=== PATIENT | female | born 1990 | race Caucasian/White ===

== ENCOUNTER 2016-09-28 23:34 | Emergency (ER) | payer MEDICAID ==
[2016-09-29 00:39] LABS: APPEARANCE,URINE CLEAR; BILIRUBIN,URINE NEGATIVE (NEGATIVE); GLUCOSE, URINE NEGATIVE (NEGATIVE); KETONES,URINE NEGATIVE (NEGATIVE); LEUKOCYTE ESTERASE,URINE SMALL (NEGATIVE); NITRITE,URINE NEGATIVE (NEGATIVE); PROTEIN,URINE NEGATIVE (NEGATIVE); URINE SPECIFIC GRAVITY 1.027; UROBILINOGEN,URINE NEGATIVE mg/dL (<2.0)
[2016-09-29 03:06] LABS: ABSOLUTE BASOPHILS # (AUTO) 0.1 10^3/uL (0.0-0.2); ABSOLUTE EOSINOPHILS # (AUTO) 0.2 10^3/uL (0.0-0.6); ABSOLUTE LYMPHOCYTES (AUTO) 2.8 10^3/uL (0.5-4.7); ABSOLUTE MONOCYTES (AUTO) 0.8 10^3/uL (0.1-1.4); ABSOLUTE NEUT (AUTO) 6.7 10^3/uL (1.7-8.2); BASOPHILS % (AUTO) 0.7 % (0-2); EOSINOPHILS % (AUTO) 1.9 % (0-6); HEMATOCRIT 37.7 % (36.0-47.0); HEMOGLOBIN 12.8 g/dL (12.0-15.5); HGB HCT DIFFERENCE 0.7; LYMPHOCYTES % (AUTO) 26.4 % (13-45); MEAN CORPUSCULAR HEMOGLOBIN 30.6 pg (27.0-33.4); MEAN CORPUSCULAR VOLUME 90 fl (80-97); MONOCYTES % (AUTO) 7.7 % (3-13); RED BLOOD COUNT 4.18 10^6/uL (3.72-5.28); RED CELL DISTRIBUTION WIDTH 12.4 % (11.5-14.0); SEGMENTED NEUTROPHILS % (AUTO) 63.3 % (42-78); WHITE BLOOD COUNT 10.6 10^3/uL (4.0-10.5)
[2016-09-29 03:21] LABS: ALANINE AMINOTRANSFERASE 21 U/L (9-52); ALBUMIN 3.3 g/dL (3.5-5.0); ALKALINE PHOSPHATASE 58 U/L (38-126); ANION GAP 9 (5-19); ASPARTATE AMINO TRANSFERASE 18 U/L (14-36); BILIRUBIN,TOTAL 0.3 mg/dL (0.2-1.3); BLOOD UREA NITROGEN 10 mg/dL (7-20); CALCIUM 9.2 mg/dL (8.4-10.2); CARBON DIOXIDE 28 mmol/L (22-30); CHLORIDE 103 mmol/L (98-107); CREATININE RESULT 0.57 mg/dL (0.52-1.25); GLUCOSE 81 mg/dL (75-110); POTASSIUM 4.3 mmol/L (3.6-5.0); SODIUM 139.6 mmol/L (137-145)
[2016-09-29] MEDS ORDERED: NORMAL SALINE 1000 ML 1,000 ML IV PRN (04:21)
--- NOTE | 2016-09-29 04:29 | ER Document Report ---
ED GI/ - General Time seen by provider: 05:15 Mode of Arrival: Ambulatory Information source: Patient TRAVEL OUTSIDE OF THE [place] IN LAST 30 DAYS: No - HPI Patient complains to provider of: Abdominal pain, , Vomiting. No: Vaginal bleeding Onset: Yesterday Timing/Duration: Waxing and waning Quality of pain: Cramping Context: Menstrual period history: Associated symptoms: Nausea, Vomiting <MALORIE BARTON - Last Filed: 09/29/16 05:45> - General TRAVEL OUTSIDE OF THE [place] IN LAST 30 DAYS: No <YANCY HIDALGO - Last Filed: 09/29/16 05:58> - General Chief Complaint: Abdominal Cramping Stated Complaint: LOWER BACK PAIN, CRAMPS Notes: Patient is a 26 year old female presenting to the emergency department complaining of low back pain, and abdominal cramping. Patient states her cramping and pain is waxing and waning. Patient had a recent UTI and is currently taking antibiotics. Patient states that her urine still has an odor. Patient states that she is also nauseated and has had some vomiting. Patient denies any vaginal bleeding. Patient states she has not been drinking enough fluids so she is trying drink more fluids. (MALORIE BARTON) - Related Data Allergies/Adverse Reactions: bee stings Allergy (Uncoded 09/29/16 00:03) Past Medical History - General Information source: Patient - Social History Smoking Status: Never Smoker Chew tobacco use (# tins/day): No Frequency of alcohol use: None Drug Abuse: None Family History: None Patient has suicidal ideation: No Patient has homicidal ideation: No Neurological Medical History: Reports: Hx Migraine Past Surgical History: Reports: Hx Orthopedic Surgery, Hx Tonsillectomy - Immunizations Hx Diphtheria, Pertussis, Tetanus Vaccination: Yes <MALORIE BARTON - Last Filed: 09/29/16 05:45> - Social History Smoking Status: Never Smoker Chew tobacco use (# tins/day): No Frequency of alcohol use: None Drug Abuse: None Family History: Reviewed & Not Pertinent Patient has suicidal ideation: No Patient has homicidal ideation: No Neurological Medical History: Reports: Hx Migraine Renal/ Medical History: Denies: Hx Peritoneal Dialysis Past Surgical History: Reports: Hx Orthopedic Surgery - ingrown toenails, Hx Tonsillectomy - Immunizations Hx Diphtheria, Pertussis, Tetanus Vaccination: Yes <YANCY HIDALGO - Last Filed: 09/29/16 05:58> Review of Systems - Review of Systems Constitutional: No symptoms reported EENT: No symptoms reported Cardiovascular: No symptoms reported Respiratory: No symptoms reported Gastrointestinal: See HPI, Abdominal pain, Nausea, Vomiting Genitourinary: No symptoms reported Female Genitourinary: See HPI, . denies: Vaginal bleeding Musculoskeletal: See HPI, Back pain Skin: No symptoms reported Hematologic/Lymphatic: No symptoms reported Neurological/Psychological: No symptoms reported -: Yes All other systems reviewed and negative <MALORIE BARTON - Last Filed: 09/29/16 05:45> Physical Exam - Vital signs Interpretation: Normal - General General appearance: Appears well, Alert In distress: Mild - HEENT Head: Normocephalic, Atraumatic Eyes: Normal Pupils: PERRL Mucous membranes: Normal - Respiratory Respiratory status: No respiratory distress Chest status: Nontender Breath sounds: Normal Chest palpation: Normal - Cardiovascular Rhythm: Regular Heart sounds: Normal auscultation - Abdominal Inspection: Normal Distension: No distension Bowel sounds: Normal Tenderness: Nontender Organomegaly: No organomegaly - Back Back: Normal, Nontender - Extremities General upper extremity: Normal inspection, Normal ROM, Normal strength General lower extremity: Normal inspection, Normal ROM, Normal strength - Neurological Neuro grossly intact: Yes Cognition: Normal Orientation: AAOx4 [place] Coma Scale Eye Opening: Spontaneous [place] Coma Scale Verbal: Oriented [place] Coma Scale Motor: Obeys Commands [place] Coma Scale Total: 15 Speech: Normal - Psychological Associated symptoms: Normal affect, Normal mood - Skin Skin Temperature: Warm Skin Moisture: Dry <MALORIE BARTON - Last Filed: 09/29/16 05:45> Course - Laboratory Result Diagrams: 09/29/16 02:54 09/29/16 02:54 <MALORIE BARTON - Last Filed: 09/29/16 05:45> - Laboratory Result Diagrams: 09/29/16 02:54 09/29/16 02:54 <YANCY HIDALGO - Last Filed: 09/29/16 05:58> - Re-evaluation Re-evalutation: 09/29/16 patient is . Patient with some cramping is now resolved. Patient is being treated for urinary tract infection Keflex. She is encouraged to continue taking that regimen. Urine culture will be sent today. Patient feels better after fluids. Would like work note. Stable for discharge home. Follow- up with [facility] as needed. Return if any worsening or concerning symptoms. (YANCY HIDALGO) - Vital Signs Vital signs: Temp Pulse Resp BP Pulse Ox 97.5 F 91 16 110/60 100 09/29/16 05:02 09/29/16 05:02 09/29/16 00:03 09/29/16 05:02 09/29/16 05:02 (MALORIE BARTON) (YANCY HIDALGO) - Laboratory Laboratory results interpreted by me: 09/29/16 09/29/16 09/29/16 00:16 02:54 02:54 WBC 10.6 H Total Protein 6.0 L Albumin 3.3 L Beta HCG, Quant 337117.00 H Ur Leukocyte Esterase SMALL H Urine Ascorbic Acid 40 H (MALORIE BARTON) (YANCY HIDALGO) Discharge <MALORIE BARTON - Last Filed: 09/29/16 05:45> <YANCY HIDALGO - Last Filed: 09/29/16 05:58> - Discharge Clinical Impression: Pelvic cramping in antepartum period Condition: Stable Disposition: HOME, SELF-CARE Instructions: Pelvic Pain in ([facility]) Forms: Return to Work Referrals: JULIAN GONSALVES MD [Primary Care Provider] - Follow up as needed Scribe Attestation: 09/29/16 05:58 I personally performed the services described in the documentation, reviewed and edited the documentation which was dictated to the scribe in my presence, and it accurately records my words and actions. (YANCY HIDALGO) Scribe Documentation <MALORIE BARTON - Last Filed: 09/29/16 05:45> <YANCY HIDALGO - Last Filed: 09/29/16 05:58> - Scribe Written by Scribe:: Dr. Hidalgo (MALORIE BARTON)
[2016-09-29 05:05] VITALS: BP 110/60
== END 2016-09-29 05:05 | disposition home or self-care (01) ==
LOC: ER 23:34
DX: O26.90 Pregnancy related conditions, unspecified, unspecified trimester (principal); R10.2 Pelvic and perineal pain; O21.9 Vomiting of pregnancy, unspecified
CPT/HCPCS: 36415; 80053; 81001; 83690; 84702; 85025; 87086; 87088; 99283

== ENCOUNTER 2016-10-01 13:40 | Emergency (ER) | payer MEDICAID ==
--- NOTE | 2016-10-01 13:44 | ER Document Report ---
ED Medical Screen (RME) - General Stated Complaint: ABDOMINAL PAIN Notes: 14 weeks left abdominal pain no vaginal bleeding or cramping TRAVEL OUTSIDE OF THE [place] IN LAST 30 DAYS: No - Related Data Allergies/Adverse Reactions: bee stings Allergy (Uncoded 09/29/16 00:03) Past Medical History Neurological Medical History: Reports: Hx Migraine Renal/ Medical History: Denies: Hx Peritoneal Dialysis Past Surgical History: Reports: Hx Orthopedic Surgery - ingrown toenails, Hx Tonsillectomy - Immunizations Hx Diphtheria, Pertussis, Tetanus Vaccination: Yes
[2016-10-01] MEDS ORDERED: NORMAL SALINE 1000 ML 1,000 ML IV PRN (13:45)
--- NOTE | 2016-10-01 14:22 | ER Document Report ---
ED GI/ - General Chief Complaint: Abdominal Pain Stated Complaint: ABDOMINAL PAIN Time seen by provider: 14:17 Mode of Arrival: Ambulatory Information source: Patient TRAVEL OUTSIDE OF THE [place] IN LAST 30 DAYS: No - HPI Patient complains to provider of: Abdominal pain - pt is approx 14 weeks with c/o L -sided abdominal pain for the past day. Denies vaginal bleeding., Has appt. with health dept 10/10. No other pre- care - Related Data Allergies/Adverse Reactions: bee stings Allergy (Uncoded 10/01/16 13:45) Past Medical History - General Information source: Patient - Social History Smoking Status: Never Smoker Cigarette use (# per day): No Chew tobacco use (# tins/day): No Smoking Education Provided: No Frequency of alcohol use: None Drug Abuse: None Family History: Reviewed & Not Pertinent Patient has suicidal ideation: No Patient has homicidal ideation: No Neurological Medical History: Reports: Hx Migraine Renal/ Medical History: Denies: Hx Peritoneal Dialysis Past Surgical History: Reports: Hx Orthopedic Surgery - ingrown toenails, Hx Tonsillectomy - Immunizations Hx Diphtheria, Pertussis, Tetanus Vaccination: Yes Review of Systems - Review of Systems Constitutional: No symptoms reported EENT: No symptoms reported Cardiovascular: No symptoms reported Respiratory: No symptoms reported Gastrointestinal: Abdominal pain Genitourinary: No symptoms reported Female Genitourinary: No symptoms reported -: Yes All other systems reviewed and negative Physical Exam - Vital signs Vitals: Temp Pulse Resp BP Pulse Ox 98.0 F 92 18 107/74 98 10/01/16 13:45 10/01/16 13:45 10/01/16 13:45 10/01/16 13:45 10/01/16 13:45 - General In distress: None - Respiratory Respiratory status: No respiratory distress Breath sounds: Normal - Cardiovascular Rhythm: Regular Heart sounds: Normal auscultation - Abdominal Inspection: Normal Distension: No distension Bowel sounds: Normal Tenderness: Nontender Organomegaly: No organomegaly - Genitourinary Speculum exam: Other - exam deferred Course - Re-evaluation Re-evalutation: 10/01/16 17:01 pt felt much better [place] from [place] now pain free -- expressed desire to go home - Vital Signs Vital signs: Temp Pulse Resp BP Pulse Ox 98.0 F 92 18 107/74 98 10/01/16 13:45 10/01/16 13:45 10/01/16 13:45 10/01/16 13:45 10/01/16 13:45 - Laboratory Result Diagrams: 10/01/16 13:50 10/01/16 13:50 Laboratory results interpreted by me: 10/01/16 10/01/16 13:50 14:59 Beta HCG, Quant [id number] H Ur Leukocyte Esterase LARGE H - Diagnostic Test Radiology reviewed: Reports reviewed - [facility]- 14 wks Discharge - Discharge Clinical Impression: UTI (urinary tract infection) Qualifiers: Urinary tract infection type: acute cystitis Hematuria presence: without hematuria Qualified Code(s): N30.00 - Acute cystitis without hematuria Condition: Stable Disposition: HOME, SELF-CARE Instructions: Abdominal Pain ([facility]), Amoxicillin ([facility]) Additional Instructions: rest, increase fluids, take meds as prescribed, return if worse Prescriptions: Amoxicillin Trihydrate [Amoxil 500 mg Capsule] 500 mg PO TID #30 capsule Referrals: JULIAN GONSALVES MD [ACTIVE STAFF] - Follow up as needed
[2016-10-01 14:32] LABS: ABSOLUTE EOSINOPHILS # (AUTO) 0.2 10^3/uL (0.0-0.6); ABSOLUTE LYMPHOCYTES (AUTO) 2.1 10^3/uL (0.5-4.7); ABSOLUTE MONOCYTES (AUTO) 0.5 10^3/uL (0.1-1.4); ABSOLUTE NEUT (AUTO) 7.3 10^3/uL (1.7-8.2); BASOPHILS % (AUTO) 0.3 % (0-2); EOSINOPHILS % (AUTO) 1.6 % (0-6); HEMOGLOBIN 13.4 g/dL (12.0-15.5); HGB HCT DIFFERENCE -0.8; LYMPHOCYTES % (AUTO) 20.6 % (13-45); MEAN CORPUSCULAR HGB CONC 32.6 g/dL (32.0-36.0); MEAN CORPUSCULAR VOLUME 92 fl (80-97); MONOCYTES % (AUTO) 5.1 % (3-13); RED BLOOD COUNT 4.46 10^6/uL (3.72-5.28); RED CELL DISTRIBUTION WIDTH 12.8 % (11.5-14.0); SEGMENTED NEUTROPHILS % (AUTO) 72.4 % (42-78); WHITE BLOOD COUNT 10.1 10^3/uL (4.0-10.5)
[2016-10-01 14:46] LABS: ALANINE AMINOTRANSFERASE 25 U/L (9-52); ALBUMIN 3.5 g/dL (3.5-5.0); ALKALINE PHOSPHATASE 63 U/L (38-126); ANION GAP 9 (5-19); ASPARTATE AMINO TRANSFERASE 18 U/L (14-36); BILIRUBIN,TOTAL 0.2 mg/dL (0.2-1.3); BLOOD UREA NITROGEN 7 mg/dL (7-20); CALCIUM 9.3 mg/dL (8.4-10.2); CARBON DIOXIDE 28 mmol/L (22-30); CHLORIDE 102 mmol/L (98-107); CREATININE RESULT 0.52 mg/dL (0.52-1.25); GLUCOSE 86 mg/dL (75-110); POTASSIUM 4.2 mmol/L (3.6-5.0); TOTAL PROTEIN 6.3 g/dL (6.3-8.2)
[2016-10-01 15:39] LABS: APPEARANCE,URINE CLOUDY; BILIRUBIN,URINE NEGATIVE (NEGATIVE); GLUCOSE, URINE NEGATIVE (NEGATIVE); KETONES,URINE NEGATIVE (NEGATIVE); LEUKOCYTE ESTERASE,URINE LARGE (NEGATIVE); NITRITE,URINE NEGATIVE (NEGATIVE); PROTEIN,URINE NEGATIVE (NEGATIVE); URINE SPECIFIC GRAVITY 1.013; UROBILINOGEN,URINE NEGATIVE mg/dL (<2.0)
[2016-10-01 17:55] VITALS: BP 108/59
== END 2016-10-01 17:56 | disposition home or self-care (01) ==
LOC: ER 13:40
DX: O23.12 Infections of bladder in pregnancy, second trimester (principal); N30.00 Acute cystitis without hematuria; R10.9 Unspecified abdominal pain; Z3A.14 14 weeks gestation of pregnancy; Z91.030 Bee allergy status
CPT/HCPCS: 99284; 96360; 86900; 86901; 36415; 86850; 84702; 85025; 80053; 81001; 76805; 93976; J7030

== ENCOUNTER 2016-10-04 11:35 | Emergency (ER) | payer MEDICAID ==
--- NOTE | 2016-10-04 11:57 | ER Document Report ---
ED Medical Screen (RME) - General Stated Complaint: ABDOMINAL PAIN Mode of Arrival: Ambulatory Information source: Patient Notes: Patient states she is 14 weeks and has had lower pelvic cramping for some time now. Patient states that she is currently being treated for UTI. Patient complains of continued lower pelvic cramping. Patient had an ultrasound at an outpatient facility that told her there was something abnormal on the ultrasound patient would like this further evaluated here. Patient states she wants to be seen by [facility] but the health department has not referred her yet due to her insurance I have greeted and performed a rapid initial assessment of this patient. A comprehensive ED assessment and evaluation of the patient, analysis of test results and completion of the medical decision making process will be conducted by additional ED providers. TRAVEL OUTSIDE OF THE [place] IN LAST 30 DAYS: No - Related Data Allergies/Adverse Reactions: bee stings Allergy (Uncoded 10/04/16 11:53) Past Medical History Neurological Medical History: Reports: Hx Migraine Renal/ Medical History: Denies: Hx Peritoneal Dialysis Past Surgical History: Reports: Hx Orthopedic Surgery - ingrown toenails, Hx Tonsillectomy - Immunizations Hx Diphtheria, Pertussis, Tetanus Vaccination: Yes Physical Exam - Vital signs Vitals: Temp Pulse Resp BP Pulse Ox 98.3 F 101 H 18 106/71 97 10/04/16 11:51 10/04/16 11:51 10/04/16 11:51 10/04/16 11:51 10/04/16 11:51 - Abdominal Tenderness: Tender - Lower pelvic Course - Vital Signs Vital signs: Temp Pulse Resp BP Pulse Ox 98.3 F 101 H 18 106/71 97 10/04/16 11:51 10/04/16 11:51 10/04/16 11:51 10/04/16 11:51 10/04/16 11:51
[2016-10-04 12:40] LABS: ABSOLUTE EOSINOPHILS # (AUTO) 0.1 10^3/uL (0.0-0.6); ABSOLUTE LYMPHOCYTES (AUTO) 1.8 10^3/uL (0.5-4.7); ABSOLUTE MONOCYTES (AUTO) 0.5 10^3/uL (0.1-1.4); ABSOLUTE NEUT (AUTO) 8.6 10^3/uL (1.7-8.2); BASOPHILS % (AUTO) 0.3 % (0-2); EOSINOPHILS % (AUTO) 0.8 % (0-6); HEMATOCRIT 42.8 % (36.0-47.0); HEMOGLOBIN 13.8 g/dL (12.0-15.5); HGB HCT DIFFERENCE -1.4; LYMPHOCYTES % (AUTO) 16.6 % (13-45); MEAN CORPUSCULAR HEMOGLOBIN 29.6 pg (27.0-33.4); MEAN CORPUSCULAR HGB CONC 32.2 g/dL (32.0-36.0); MEAN CORPUSCULAR VOLUME 92 fl (80-97); MONOCYTES % (AUTO) 4.5 % (3-13); RED BLOOD COUNT 4.65 10^6/uL (3.72-5.28); RED CELL DISTRIBUTION WIDTH 12.4 % (11.5-14.0); SEGMENTED NEUTROPHILS % (AUTO) 77.8 % (42-78)
[2016-10-04 12:47] LABS: APPEARANCE,URINE CLEAR; BILIRUBIN,URINE NEGATIVE (NEGATIVE); GLUCOSE, URINE NEGATIVE (NEGATIVE); KETONES,URINE NEGATIVE (NEGATIVE); LEUKOCYTE ESTERASE,URINE TRACE (NEGATIVE); NITRITE,URINE NEGATIVE (NEGATIVE); PROTEIN,URINE NEGATIVE (NEGATIVE); URINE SPECIFIC GRAVITY 1.009; UROBILINOGEN,URINE NEGATIVE mg/dL (<2.0)
[2016-10-04 13:05] LABS: ALANINE AMINOTRANSFERASE 26 U/L (9-52); ALBUMIN 4.3 g/dL (3.5-5.0); ALKALINE PHOSPHATASE 73 U/L (38-126); ANION GAP 11 (5-19); ASPARTATE AMINO TRANSFERASE 19 U/L (14-36); BILIRUBIN,TOTAL 0.8 mg/dL (0.2-1.3); BLOOD UREA NITROGEN 8 mg/dL (7-20); CALCIUM 9.8 mg/dL (8.4-10.2); CARBON DIOXIDE 25 mmol/L (22-30); CHLORIDE 103 mmol/L (98-107); CREATININE RESULT 0.54 mg/dL (0.52-1.25); GLUCOSE 76 mg/dL (75-110); POTASSIUM 4.4 mmol/L (3.6-5.0); SODIUM 138.5 mmol/L (137-145); TOTAL PROTEIN 7.1 g/dL (6.3-8.2)
--- NOTE | 2016-10-04 14:55 | ER Document Report ---
ED General - General Chief Complaint: Abdominal Cramping Stated Complaint: ABDOMINAL PAIN Mode of Arrival: Ambulatory Information source: Patient Notes: 26 yr old female who is 14 weeks pregnat presents with concerns of cramping. pt notes she had an ultrasound prior which ntoed nuchal lucency. pt attempted to get with health dept and wha and uwas unable ot do so denies any vaginal bleeding TRAVEL OUTSIDE OF THE [place] IN LAST 30 DAYS: No - HPI Onset: Other Onset/Duration: Persistent Quality of pain: Cramping Severity: Mild Pain Level: 1 Associated symptoms: None Exacerbated by: Denies Relieved by: Denies Similar symptoms previously: Yes Recently seen / treated by doctor: Yes - Related Data Allergies/Adverse Reactions: bee stings Allergy (Uncoded 10/04/16 11:53) Past Medical History - General Information source: Patient - Social History Smoking Status: Never Smoker Cigarette use (# per day): No Chew tobacco use (# tins/day): No Smoking Education Provided: No Frequency of alcohol use: None Drug Abuse: None Family History: Reviewed & Not Pertinent Patient has suicidal ideation: No Patient has homicidal ideation: No Neurological Medical History: Reports: Hx Migraine Renal/ Medical History: Denies: Hx Peritoneal Dialysis Past Surgical History: Reports: Hx Orthopedic Surgery - ingrown toenails, Hx Tonsillectomy - Immunizations Hx Diphtheria, Pertussis, Tetanus Vaccination: Yes Review of Systems - Review of Systems Notes: REVIEW OF SYSTEMS: CONSTITUTIONAL : Denies fever, chills, or sweats. Denies recent illness. EENT: Denies eye, ear, throat, or mouth pain or symptoms. Denies nasal or sinus congestion or discharge. Denies throat, tongue, or mouth swelling or difficulty swallowing. CARDIOVASCULAR: Denies chest pain. Denies palpitations or racing or irregular heart beat. Denies ankle edema. RESPIRATORY: Denies cough, cold, or chest congestion. Denies shortness of breath, difficulty breathing, or wheezing. GASTROINTESTINAL: Denies abdominal pain or distention. Denies nausea, vomiting , or diarrhea. Denies blood in vomitus, stools, or per rectum. Denies black, tarry stools. Denies constipation. GENITOURINARY: Denies difficulty urinating, painful urination, burning, frequency, blood in urine, or discharge. FEMALE GENITOURINARY: Admits to pelvic cramping MUSCULOSKELETAL: Denies back or neck pain or stiffness. Denies joint pain or swelling. SKIN: Denies rash, lesions or sores. HEMATOLOGIC : Denies easy bruising or bleeding. LYMPHATIC: Denies swollen, enlarged glands. NEUROLOGICAL: Denies confusion or altered mental status. Denies passing out or loss of consciousness. Denies dizziness or lightheadedness. Denies headache. Denies weakness or paralysis or loss of use of either side. Denies problems with gait or speech. Denies sensory loss, numbness, or tingling. Denies seizures. PSYCHIATRIC: Denies anxiety or stress. Denies depression, suicidal ideation, or homicidal ideation. ALL OTHER SYSTEMS REVIEWED AND NEGATIVE. Dictation was performed using [employer] voice recognition software PHYSICAL EXAMINATION: GENERAL: Well-appearing, well-nourished and in no acute distress. HEAD: Atraumatic, normocephalic. EYES: Pupils equal round extraocular movements intact, conjunctiva are normal. ENT: Nares patent NECK: Normal range of motion LUNGS: No respiratory distress Musculoskeletal: Normal range of motion NEUROLOGICAL: Normal speech, normal gait. PSYCH: Normal mood, normal affect. SKIN: Warm, Dry, normal turgor, no rashes or lesions noted. Physical Exam - Vital signs Vitals: Temp Pulse Resp BP Pulse Ox 98.3 F 101 H 18 106/71 97 10/04/16 11:51 10/04/16 11:51 10/04/16 11:51 10/04/16 11:51 10/04/16 11:51 Course - Re-evaluation Re-evalutation: 10/04/16 14:[address] Foy regarding US findings, she will set patient up with an appointment with the health department. She believes it is normal at this time but requires a professional ultrasound performed 10/04/16 15:28 Patient did receive a call from health department she will have an appointment and I believe she is stable for discharge After performing a Medical Screening Examination, I estimate there is LOW risk for ACUTE APPENDICITIS, BOWEL OBSTRUCTION, ACUTE CHOLECYSTITIS, PERFORATED DIVERTICULITIS, INCARCERATED HERNIA, PANCREATITIS, PELVIC INFLAMMATORY DISEASE, PERFORATED ULCER, ECTOPIC , or TUBO-OVARIAN ABSCESS, thus I consider the discharge disposition reasonable. Also, there is no evidence or peritonitis , sepsis, or toxicity. The patient and I have discussed the diagnosis and risks , and we agree with discharging home with close follow-up with the understanding that symptoms and presentations can change. We also discussed returning to the Emergency Department immediately if new or worsening symptoms occur. We have discussed the symptoms which are most concerning (e.g., bloody stool, fever, changing or worsening pain, vomiting) that necessitate immediate return. - Vital Signs Vital signs: Temp Pulse Resp BP Pulse Ox 98.3 F 101 H 18 106/71 97 10/04/16 11:51 10/04/16 11:51 10/04/16 11:51 10/04/16 11:51 10/04/16 11:51 - Laboratory Result Diagrams: 10/04/16 12:15 10/04/16 12:15 Laboratory results interpreted by me: 10/04/16 10/04/16 10/04/16 12:15 12:15 12:15 WBC 11.0 H Absolute Neutrophils 8.6 H Beta HCG, Quant [id number] H Ur Leukocyte Esterase TRACE H - Diagnostic Test Radiology reviewed: Image reviewed, Reports reviewed Discharge - Discharge Clinical Impression: Pelvic pain during Condition: Stable Disposition: HOME, SELF-CARE Additional Instructions: Please follow-up with the care plan provided to you by the health department or return immediately if there are any other concerns
[2016-10-04 15:46] VITALS: BP 106/88
== END 2016-10-04 15:45 | disposition home or self-care (01) ==
LOC: ER 11:35
DX: O26.92 Pregnancy related conditions, unspecified, second trimester (principal); R10.2 Pelvic and perineal pain; Z3A.14 14 weeks gestation of pregnancy
CPT/HCPCS: 36415; 76805; 80053; 81001; 84702; 85025; 87086; 87088; 99284

== ENCOUNTER 2016-10-07 01:42 | Emergency (ER) | payer MEDICAID ==
--- NOTE | 2016-10-07 02:22 | ER Document Report ---
ED GI/ - General Time seen by provider: 20:15 Mode of Arrival: Ambulatory Information source: Patient TRAVEL OUTSIDE OF THE [place] IN LAST 30 DAYS: No - HPI Patient complains to provider of: Abdominal pain, , Vaginal discharge Onset: This evening Quality of pain: Cramping Context: Vaginal bleeding (Compared to normal period): None Menstrual period history: <MALORIE BARTON - Last Filed: 10/07/16 03:21> - General TRAVEL OUTSIDE OF THE [place] IN LAST 30 DAYS: No <YANCY HIDALGO - Last Filed: 10/07/16 05:46> - General Chief Complaint: Vaginal Discharge Stated Complaint: VAGINAL DISCHARGE Notes: Patient is a 26-year-old female, who is 15 weeks , presenting to the emergency department with complaints of vaginal discharge. Patient states that she had some mucus appearing vaginal discharge and has some concerned that he was her "mucus plug." Patient states that she has some abdominal cramping as well. Patient has come to the emergency department multiple times every few days to get evaluated because she has some concerns for . Patient has a high-risk for a trisomy or down syndrome patient. Patient states that she had a ultrasound done today at her [facility]. Patient states she is very nervous that she is going to have a miscarriage. Patient also currently has a UTI and is taking antibiotics to treat it. Patient states she is drinking lots of fluids daily. Patient denies any vaginal bleeding. (MALORIE BARTON) - Related Data Allergies/Adverse Reactions: bee stings Allergy (Uncoded 10/04/16 11:53) Past Medical History - General Information source: Patient - Social History Smoking Status: Never Smoker Cigarette use (# per day): No Chew tobacco use (# tins/day): No Frequency of alcohol use: None Drug Abuse: None Family History: None Neurological Medical History: Reports: Hx Migraine Past Surgical History: Reports: Hx Orthopedic Surgery, Hx Tonsillectomy - Immunizations Hx Diphtheria, Pertussis, Tetanus Vaccination: Yes <MALORIE BARTON - Last Filed: 10/07/16 03:21> - Social History Smoking Status: Never Smoker Frequency of alcohol use: None Drug Abuse: None Family History: Reviewed & Not Pertinent Neurological Medical History: Reports: Hx Migraine Renal/ Medical History: Denies: Hx Peritoneal Dialysis Past Surgical History: Reports: Hx Orthopedic Surgery - ingrown toenails, Hx Tonsillectomy - Immunizations Hx Diphtheria, Pertussis, Tetanus Vaccination: Yes <YANCY HIDALGO - Last Filed: 10/07/16 05:46> Review of Systems - Review of Systems Constitutional: No symptoms reported EENT: No symptoms reported Cardiovascular: No symptoms reported Respiratory: No symptoms reported Gastrointestinal: See HPI, Abdominal pain Genitourinary: No symptoms reported Female Genitourinary: See HPI, , Vaginal discharge. denies: Vaginal bleeding Musculoskeletal: No symptoms reported Skin: No symptoms reported Hematologic/Lymphatic: No symptoms reported Neurological/Psychological: No symptoms reported -: Yes All other systems reviewed and negative <MALORIE BARTON - Last Filed: 10/07/16 03:21> Physical Exam - Vital signs Interpretation: Normal - General General appearance: Appears well, Alert In distress: None - HEENT Head: Normocephalic, Atraumatic Eyes: Normal Pupils: PERRL Mucous membranes: Normal - Respiratory Respiratory status: No respiratory distress Chest status: Nontender Breath sounds: Normal Chest palpation: Normal - Cardiovascular Rhythm: Regular Heart sounds: Normal auscultation Murmur: No - Abdominal Inspection: Gravid female Distension: No distension Bowel sounds: Normal Tenderness: Nontender Organomegaly: No organomegaly - Back Back: Normal, Nontender - Extremities General upper extremity: Normal inspection, Normal ROM, Normal strength General lower extremity: Normal inspection, Normal ROM, Normal strength - Neurological Neuro grossly intact: Yes Cognition: Normal Orientation: AAOx4 [place] Coma Scale Eye Opening: Spontaneous [place] Coma Scale Verbal: Oriented [place] Coma Scale Motor: Obeys Commands Peggy Coma Scale Total: 15 Speech: Normal Sensory: Normal - Psychological Associated symptoms: Normal affect, Normal mood - Skin Skin Temperature: Warm Skin Moisture: Dry <MALORIE BARTON - Last Filed: 10/07/16 03:21> Course <MALORIE BARTON - Last Filed: 10/07/16 03:21> <YANCY HIDALGO - Last Filed: 10/07/16 05:46> - Re-evaluation Re-evalutation: 10/07/16 Patient is a 26-year-old female who comes in because of some vaginal discharge. Patient does not feel that she to be tested for STDs. Patient's taking antibiotics for UTI based on a culture currently. Bedside ultrasound within normal limits. Patient is 15 weeks. Patient is to follow-up with her [facility]. Stable for discharge. (YANCY HIDALGO) - Vital Signs Vital signs: Temp Pulse Resp BP Pulse Ox 98.3 F 71 18 105/62 97 10/07/16 02:30 10/07/16 02:30 10/07/16 02:30 10/07/16 02:30 10/07/16 02:30 (MALORIE BARTON) (YANCY HIDALGO) Procedures - Ultrasound/Bedside Ultrasound/Bedside Time completed: 02:18 <MALORIE BARTON - Last Filed: 10/07/16 03:21> - Ultrasound/Bedside Ultrasound/Bedside Ultrasound: Normal, Other - Good movement. heartbeat at approximately 160 bpm. No free fluid <YANCY HIDALGO - Last Filed: 10/07/16 05:46> Discharge <MALORIE BARTON - Last Filed: 10/07/16 03:21> <YANCY HIDALGO - Last Filed: 10/07/16 05:46> - Discharge Clinical Impression: Pelvic pain during Condition: Stable Disposition: HOME, SELF-CARE Instructions: Pelvic Pain in ([facility]) Additional Instructions: Please make sure you're drinking plenty of fluids and taking your antibiotics as directed. Please follow-up with your OB in the morning. Scribe Attestation: 10/07/16 05:45 I personally performed the services described in the documentation, reviewed and edited the documentation which was dictated to the scribe in my presence, and it accurately records my words and actions. (YANCY HIDALGO) Scribe Documentation - Scribe Written by Scribjose luis:: Malorie Barton 03:03 10/07/16 acting as scribe for :: Mary <MALORIE BARTON - Last Filed: 10/07/16 03:21>
[2016-10-07 02:35] VITALS: BP 105/62
[2016-10-07 02:51] LABS: APPEARANCE,URINE CLEAR; BILIRUBIN,URINE NEGATIVE (NEGATIVE); GLUCOSE, URINE NEGATIVE (NEGATIVE); KETONES,URINE NEGATIVE (NEGATIVE); LEUKOCYTE ESTERASE,URINE NEGATIVE (NEGATIVE); NITRITE,URINE NEGATIVE (NEGATIVE); PROTEIN,URINE NEGATIVE (NEGATIVE); URINE SPECIFIC GRAVITY 1.017; UROBILINOGEN,URINE NEGATIVE mg/dL (<2.0)
== END 2016-10-07 02:36 | disposition home or self-care (01) ==
LOC: ER 01:42
DX: O26.892 Other specified pregnancy related conditions, second trimester (principal); R10.2 Pelvic and perineal pain; N89.8 Other specified noninflammatory disorders of vagina; O23.42 Unspecified infection of urinary tract in pregnancy, second trimester; O09.892 Supervision of other high risk pregnancies, second trimester; Z3A.15 15 weeks gestation of pregnancy; Z91.030 Bee allergy status
CPT/HCPCS: 81001; 99283

== ENCOUNTER 2016-10-14 11:32 | Emergency (ER) | payer MEDICAID ==
--- NOTE | 2016-10-14 11:44 | ER Document Report ---
ED Medical Screen (RME) - General Stated Complaint: ABDOMINAL PAIN Time seen by provider: 11:42 Mode of Arrival: Ambulatory Information source: Patient Notes: 26-year-old female presents to ED for abdominal pain at around 15 weeks with a high risk . Denies nausea or vomiting. Patient is concerned with the pain due she has been told she has a Down syndrome child. Spoke with Dr. Mabry he agreed a transabdominal ultrasound. I have greeted and performed a rapid initial assessment of this patient. A comprehensive ED assessment and evaluation of the patient, analysis of test results and completion of medical decision making process will be conducted by an additional ED providers. TRAVEL OUTSIDE OF THE [place] IN LAST 30 DAYS: No - Related Data Allergies/Adverse Reactions: bee stings Allergy (Uncoded 10/04/16 11:53) Past Medical History Neurological Medical History: Reports: Hx Migraine Renal/ Medical History: Denies: Hx Peritoneal Dialysis Past Surgical History: Reports: Hx Orthopedic Surgery - ingrown toenails, Hx Tonsillectomy - Immunizations Hx Diphtheria, Pertussis, Tetanus Vaccination: Yes
[2016-10-14 11:47] VITALS: BP 116/67
--- NOTE | 2016-10-14 14:07 | ER Document Report ---
HPI - HPI Patient complains to provider of: abdominal discomfort Onset: Yesterday Onset/Duration: Gradual, Intermittent Pain Level: 3 Context: 26 yo female with 33% chance of downs and another anomolie c/o intermittent mild abdominal pain. No vaginal bleeding. Under stress because father's family wants her to have an . So she thinks the argument caused pain. No dysuria. No fever. No vaginal discharge. Has appt. with obgyn high risk in [place]. She only wants to know if there is a heartbeat. Associated Symptoms: None Exacerbated by: Denies Relieved by: Denies Similar symptoms previously: No Recently seen / treated by doctor: No - ROS ROS below otherwise negative: Yes Systems Reviewed and Negative: Yes All other systems reviewed and negative - REPRODUCTIVE Reproductive: REPORTS: : - DERM Skin Color: Normal Past Medical History - General Information source: Patient - Social History Smoking Status: Never Smoker Chew tobacco use (# tins/day): No Frequency of alcohol use: None Drug Abuse: None Lives with: Family Family History: Reviewed & Not Pertinent Patient has suicidal ideation: No Patient has homicidal ideation: No Neurological Medical History: Reports: Hx Migraine Renal/ Medical History: Denies: Hx Peritoneal Dialysis Surgical Hx: Negative Past Surgical History: Reports: Hx Orthopedic Surgery - ingrown toenails, Hx Tonsillectomy - Immunizations Hx Diphtheria, Pertussis, Tetanus Vaccination: Yes Vertical Provider Document - CONSTITUTIONAL Agree With Documented VS: Yes Exam Limitations: No Limitations General Appearance: No Apparent Distress - INFECTION CONTROL TRAVEL OUTSIDE OF THE [place] IN LAST 30 DAYS: No - HEENT HEENT: Normocephalic - NECK Neck: Supple - RESPIRATORY Respiratory: Breath Sounds Normal, No Respiratory Distress O2 Sat by Pulse Oximetry: 99 - CARDIOVASCULAR Cardiovascular: Regular Rate, Regular Rhythm - GI/ABDOMEN Gastrointestinal: Abdomen Soft Notes: gravid uterus - BACK Back: Normal Inspection. negative: CVA Tenderness-Right, CVA Tenderness-Left - MUSCULOSKELETAL/EXTREMETIES Musculoskeletal/Extremeties: WENDY BELTRÁN - NEURO Level of Consciousness: Awake, Alert - DERM Integumentary: Warm, Dry Course - Re-evaluation Re-evalutation: 10/14/16 14:48 Patient is to leave to worm picker her son she wanted to make sure that there was a heartbeat on the ultrasound. The full report of the ultrasound has not been read by the radiologist but I told the patient that she can call me to get the results in about an hour. 10/14/16 14:48 - Vital Signs Vital signs: Temp Pulse Resp BP Pulse Ox 97.8 F 96 14 116/67 99 10/14/16 11:43 10/14/16 11:43 10/14/16 11:43 10/14/16 11:43 10/14/16 11:43 Discharge - Discharge Clinical Impression: viable 15 week 6 day Condition: Good Disposition: HOME, SELF-CARE Instructions: ([facility]) Additional Instructions: Call me at [phone] for the ultrasound results Return to the emergency room for any abdominal pain or bleeding. Follow-up with Dr. Mitchell as planned Forms: Return to Work Referrals: SONNY MITCHELL MD [Primary Care Provider] - 10/17/16
== END 2016-10-14 14:57 | disposition home or self-care (01) ==
LOC: ER 11:32
DX: O26.92 Pregnancy related conditions, unspecified, second trimester (principal); R10.9 Unspecified abdominal pain; Z3A.15 15 weeks gestation of pregnancy
CPT/HCPCS: 76805; 99284

== ENCOUNTER 2016-10-18 10:05 | Emergency (ER) | payer MEDICAID ==
--- NOTE | 2016-10-18 10:19 | ER Document Report ---
ED Medical Screen (RME) - General Stated Complaint: URINATION HAS ODOR Time seen by provider: 10:17 Mode of Arrival: Ambulatory Information source: Patient TRAVEL OUTSIDE OF THE [place] IN LAST 30 DAYS: No - HPI Patient complains to provider of: URINE HAS ODOR Onset: Other - INTERMITTENT SINCE JULY Onset/Duration: Persistent Quality of pain: No pain Severity: None Pain Level: Denies Associated Symptoms: Other - VAGINAL DISCHARGE AND IRRITATION Exacerbated by: Denies Relieved by: Denies Similar symptoms previously: Yes Recently seen / treated by doctor: Yes - FOR UTI Notes: 10/18/16 10:19 PT IS 16 WEEKS - Related Data Smoking: Non-smoker Frequency of alcohol use: None Drug Abuse: None Allergies/Adverse Reactions: No Known Drug Allergies Allergy (Verified 10/18/16 10:15) bee stings Allergy (Uncoded 10/18/16 10:15) Past Medical History Neurological Medical History: Reports: Hx Migraine Renal/ Medical History: Denies: Hx Peritoneal Dialysis Past Surgical History: Reports: Hx Orthopedic Surgery - ingrown toenails, Hx Tonsillectomy - Immunizations Hx Diphtheria, Pertussis, Tetanus Vaccination: Yes Physical Exam - Vital signs Vitals: Temp Pulse Resp BP Pulse Ox 97.9 F 72 14 115/68 97 10/18/16 10:10 10/18/16 10:10 10/18/16 10:10 10/18/16 10:10 10/18/16 10:10 Course - Vital Signs Vital signs: Temp Pulse Resp BP Pulse Ox 97.9 F 72 14 115/68 97 10/18/16 10:10 10/18/16 10:10 10/18/16 10:10 10/18/16 10:10 10/18/16 10:10
[2016-10-18 10:42] LABS: APPEARANCE,URINE SLIGHTLY-CLOUDY; BILIRUBIN,URINE NEGATIVE (NEGATIVE); GLUCOSE, URINE NEGATIVE (NEGATIVE); KETONES,URINE NEGATIVE (NEGATIVE); LEUKOCYTE ESTERASE,URINE TRACE (NEGATIVE); NITRITE,URINE NEGATIVE (NEGATIVE); PROTEIN,URINE NEGATIVE (NEGATIVE); URINE SPECIFIC GRAVITY 1.015; UROBILINOGEN,URINE NEGATIVE mg/dL (<2.0)
--- NOTE | 2016-10-18 11:01 | ER Document Report ---
ED GI/ - General Mode of Arrival: Ambulatory Information source: Patient TRAVEL OUTSIDE OF THE [place] IN LAST 30 DAYS: No - HPI Patient complains to provider of: Other - UTI Onset: Last week Menstrual period history: Associated symptoms: Other - See above - General Chief Complaint: Vaginal Discharge Stated Complaint: URINATION HAS ODOR Notes: 26-year-old female (16 weeks) (presents to the ED complaining of foul- smelling odor with urination and yellow vaginal discharge for the past one week. Patient states that she was diagnosed with UTI 1 week ago and has recently finished a regimen of amoxicillin. Patient states that she was seen in the ED for bacterial vaginosis and was prescribed Flagyl on top of having a UTI at the time. Patient states that since being diagnosed with bacterial vaginosis she has had a "UTI" 4 times and has been prescribed Keflex and Bactrim as well. Patient denies any burning with urination. Patient states that she has not discussed these UTIs with her OB, Dr. Arbeu. Patient states that she saw her OB last week and was informed that her child has syndrome. Patient's next point with her OB is in 4 weeks. (TITO NOLAND) - Related Data Allergies/Adverse Reactions: No Known Drug Allergies Allergy (Verified 10/18/16 10:15) bee stings Allergy (Uncoded 10/18/16 10:15) Past Medical History - General Information source: Patient - Social History Smoking Status: Never Smoker Chew tobacco use (# tins/day): No Frequency of alcohol use: None Drug Abuse: None Family History: Reviewed & Not Pertinent Patient has suicidal ideation: No Neurological Medical History: Reports: Hx Migraine Renal/ Medical History: Denies: Hx Peritoneal Dialysis Past Surgical History: Reports: Hx Orthopedic Surgery - ingrown toenails, Hx Tonsillectomy - Immunizations Hx Diphtheria, Pertussis, Tetanus Vaccination: Yes Review of Systems - Review of Systems Constitutional: See HPI, Recent illness - bacterial vaginosis and UTI EENT: No symptoms reported Cardiovascular: No symptoms reported Respiratory: No symptoms reported Gastrointestinal: No symptoms reported Genitourinary: No symptoms reported. denies: Burning Female Genitourinary: See HPI, - 16 weeks, Vaginal discharge, Vaginal odor Musculoskeletal: No symptoms reported Skin: No symptoms reported Hematologic/Lymphatic: No symptoms reported Neurological/Psychological: No symptoms reported -: Yes All other systems reviewed and negative Physical Exam - Vital signs Interpretation: Normal - General General appearance: Alert In distress: None - HEENT Head: Normocephalic, Atraumatic Eyes: Normal Extraocular movements intact: Yes Pupils: PERRL - Respiratory Respiratory status: No respiratory distress Breath sounds: Normal - Cardiovascular Rhythm: Regular Heart sounds: Normal auscultation - Abdominal Inspection: Normal Distension: No distension Bowel sounds: Normal Tenderness: Nontender - Genitourinary External exam: Normal Bimanuel exam: Normal - Extremities General upper extremity: Normal inspection, Normal ROM General lower extremity: Normal inspection, Normal ROM - Neurological Neuro grossly intact: Yes Cognition: Normal Orientation: AAOx4 [place] Coma Scale Eye Opening: Spontaneous Peggy Coma Scale Verbal: Oriented Peggy Coma Scale Motor: Obeys Commands [place] Coma Scale Total: 15 Speech: Normal - Psychological Associated symptoms: Normal affect, Normal mood - Skin Skin Temperature: Warm Skin Moisture: Dry Skin Color: Normal - Vital signs Vitals: Temp Pulse Resp BP Pulse Ox 97.9 F 72 14 115/68 97 10/18/16 10:10 10/18/16 10:10 10/18/16 10:10 10/18/16 10:10 10/18/16 10:10 (TITO NOLAND) (DENZEL FLORES) Course - Re-evaluation Re-evalutation: 10/18/16 13:43 I personally performed the services described in the documentation, reviewed and edited the documentation which was dictated to my scribe in my presence, and it accurately records my words and actions. Patient presents emergency Department with a chief complaint of UTI. Patient has had multiple visits to the ER since she found out she was . She sees an [facility] specialist here in [facility] and most recently saw them last week. She is very overwhelmed she's been told that the child likely has Down syndrome. There is a whole bunch of additional testing that they want to do. That she's extremely overwhelmed with at this time. She is also here by herself and doesn't seem to have any support. She says she's been on numerous antibiotics but that nothing seems to be getting better when I ask her what it is it's not getting better she says the smell that she smells in her vagina. On straight catheter urinalysis she has a couple white cells but nothing I would be convinced that she has an acute urinary tract infection especially with multiple antibiotics. We'll send a culture of that did a pelvic examination wet prep is negative for Trichomonas. GC and chlamydia are pending that she didn't complain of any tenderness on examination nor dysuria vaginal discharge side do not suspect acute PID. At this point I'm going to recommend given the number of visits to the emergency department and the fact that she's that she sees [facility] tomorrow and close follow-up. And she is to return to emergency for increasing worsening or new symptoms (DENZEL FLORES) - Vital Signs Vital signs: Temp Pulse Resp BP Pulse Ox 97.9 F 72 14 115/68 97 10/18/16 10:10 10/18/16 10:10 10/18/16 10:10 10/18/16 10:10 10/18/16 10:10 (TITO NOLAND) (DENZEL FLORES) - Laboratory Laboratory results interpreted by me: 10/18/16 10:08 Ur Leukocyte Esterase TRACE H (TITO NOLAND) (DENZEL FLORES) Discharge - Discharge Clinical Impression: Vaginal odor Condition: Stable Disposition: HOME, SELF-CARE Additional Instructions: You have had a couple emergency department visits were you've been given antibiotics for suspected urinary tract infection. Your straight catheter urinalysis does not show an acute urinary tract infection you have some white blood cells in the urine, send that for culture. No evidence of kidney infection fever or vomiting at this point. He also denied any vaginal bleeding or discharge in your pelvic examination is essentially normal. Given the fact that you've been seen numerous times in the ER I would like that you follow up with your [facility] physician in one to 2 days especially since she been told he may have an abnormal . Return to the emergency department sooner for increasing worsening or new symptoms Referrals: SONNY ABREU MD [Primary Care Provider] - Follow up as needed (in 1-2 days return to er sooner for increasing worsening or new symptoms) Scribe Documentation - Scribe Written by Vinayake:: Abdi Kim, 10/18/2016 12:51 acting as scribe for :: Shankar
[2016-10-18 13:31] LABS: CHLAM PCR NOT DETECTED (NOT DETECT)
[2016-10-18 14:14] VITALS: BP 112/65
== END 2016-10-18 14:18 | disposition home or self-care (01) ==
LOC: ER 10:05
DX: O26.892 Other specified pregnancy related conditions, second trimester (principal); R39.89 Other symptoms and signs involving the genitourinary system; N89.8 Other specified noninflammatory disorders of vagina; Z3A.16 16 weeks gestation of pregnancy; Z87.440 Personal history of urinary (tract) infections; Z91.030 Bee allergy status
CPT/HCPCS: 81001; 87210; 87491; 87591; 99283

== ENCOUNTER 2017-01-06 12:50 | Outpatient (CLI) | payer MEDICAID ==
[2017-01-06 13:40] LABS: APPEARANCE,URINE CLEAR; BILIRUBIN,URINE NEGATIVE (NEGATIVE); GLUCOSE, URINE 50 mg/dL (NEGATIVE); KETONES,URINE NEGATIVE (NEGATIVE); LEUKOCYTE ESTERASE,URINE TRACE (NEGATIVE); NITRITE,URINE NEGATIVE (NEGATIVE); PROTEIN,URINE NEGATIVE (NEGATIVE); URINE SPECIFIC GRAVITY 1.004; UROBILINOGEN,URINE NEGATIVE mg/dL (<2.0)
[2017-01-06 13:56] LABS: URINE BARBITURATES SCREEN NEGATIVE; URINE METHADONE SCREEN NEGATIVE; URINE OPIATES LOW NEGATIVE; URINE PHENCYCLIDINE SCREEN NEGATIVE
--- NOTE | 2017-01-06 16:46 | L&D Discharge Summary ---
OB Discharge Summary Datetime Report Generated by CPN: 01/06/2017 16:45 DISCHARGE DIAGNOSIS Diagnosis/Symptoms: Round Ligament Syndrome Diagnoses/Symptoms Other: iup 27+6 Gestation: 27.6 Number of Babies in Womb: 1 Parity: 1 DIET/ACTIVITY/RESTRICTIONS Diet: Regular Activity: Normal Activity TEACHING/INSTRUCTIONS/REFERRALS Instructions Given To: patient and FOB Instructions Understood: Patient Verbalized Understanding; Support Person Verbalized Understanding Referrals: None Educational Materials- Other: care notes reviewed and signed for Round Ligament pain DISCHARGE INFORMATION Discharged AMA: No Discharge Date/Time: 01/06/2017 14:11 Discharged To: Home Discharge Provider Name: Varun Bennett Accompanied By: FOB Discharge Method: Ambulatory Condition: Stable FOLLOW UP INFORMATION Follow Up With: [facility] Follow Up On: As Scheduled Follow Up Phone Number: [facility] - Comments: Educated to increase po intake, frequent small meals, rest . Return for worsening symptoms GENERAL INSTR-CALL PROVIDER IF: Contractions: Contractions or cramps become more frequent than 8 in one hour or 4 in 20 minutes Pressure: Pressure in your vagina or lower abdomen that may feel like the baby is pushing down Period Like Cramps: Period-like cramps or low dull backache that may come and go Gush of Fluid/Blood: Gush of fluid or blood from your vagina (it is normal to have spotting after vaginal exam or intercourse)
--- NOTE | 2017-01-06 16:46 | L&D Current Admission ---
Current Admit Datetime Report Generated by CPN: 01/06/2017 16:45 ADMISSION INFORMATION Chief Complaint: Other (Annotations: lower left quad pain) (01/06/2017 13:31:[place], [facility])
--- NOTE | 2017-01-06 16:46 | L&D General Admission ---
General Admit Datetime Report Generated by CPN: 01/06/2017 16:45 INFORMATION Patient Age: 24 (09/21/2014 09:45:QS system process) EDC: 04/01/2017 00:00 (01/06/2017 13:15:SADIQ Espino) : 2 (01/06/2017 13:15:SADIQ Espino) Para: 1 (01/06/2017 13:15:SADIQ Espino) Term: 1 (01/06/2017 13:15:SADIQ Espino) : 0 (01/06/2017 13:15:SADIQ Espino) Spontaneous Abortions: 0 (01/06/2017 13:15:SADIQ Espino) Induced Abortions: 0 (01/06/2017 13:15:SADIQ Espino) Livin (01/06/2017 13:15:SADIQ Espino) Cesareans: 0 (01/06/2017 13:15:SADIQ Espino) VBACs: 0 (01/06/2017 13:15:SADIQ Espino) Ectopic: 0 (01/06/2017 13:15:[facility], [facility]) Multiple Births: 0 [facility]06[facility]2017 [facility] Baby, Number in Womb: 1 (01/06/2017 13:15:Magi Ward, [facility]) CARE [facility] (01/06/2017 13:15:Magi Ward, [facility]) Month of 1st Visit: July (01/06/2017 13:15:Magi Ward, [facility]) Adequate Care: Yes (01/06/2017 13:15:Magi Ward, [facility]) Prepregnancy Weight (lb): 130 (01/06/2017 13:15:Magi Ward [facility]) Prepregnancy Weight (kg): 59.1 (01/06/2017 13:15:QS system process) Height (in): 67 (01/06/2017 13:08:QS system process) ALLERGIES Medication Allergy: No (01/06/2017 13:15:Magi Ward SADIQ) Medication Allergies: No Known Drug Allergies (01/06/2017) (01/06/2017 13:08:QS system process) Medication Allergies: No Known Drug Allergies (10/18/2016) (10/18/2016 10:15:QS system process) Medication Allergies: etonogestrel/Hair Loss, Mood (08/10/2016) (08/10/2016 09:18:QS system process) Medication Allergies: etonogestrel/Hair Loss, Mood (08/08/2016) (08/08/2016 13:43:QS system process) Medication Allergies: etonogestrel/Hair Loss, Mood (07/16/2016) (07/16/2016 15:33:QS system process) Medication Allergies: Etonogestrel/Hair Loss, Mood (08/06/2015) (08/06/2015 15:21:QS system process) Medication Allergies: Etonogestrel/Hair Loss, Mood (05/30/2015) (05/30/2015 17:55:QS system process) Medication Allergies: No Known Allergies (05/30/2015) (05/30/2015 16:19:QS system process) Medication Allergies: No Known Allergies (09/21/2014) (09/21/2014 09:45:QS system process) Latex Allergy: No Latex Allergies (01/06/2017 13:15:SADIQ Espino) COMMUNICATION Primary Language: Stateless (01/06/2017 13:15:SADIQ Espino) Medical Tx Preferred Language: Stateless (01/06/2017 13:15:SADIQ Espino) Communication Barrier(s): None (01/06/2017 13:15:SADIQ Espino) DEMOGRAPHICS Address: [address] [place] [id number] (01/06/2017 12:51:QS system process) Address: [address] [place] [id number] (09/21/2014 09:45:QS system process) Zipcode: [id number] (01/06/2017 12:51:QS system process) Zipcode: [id number] (09/21/2014 09:45:QS system process) Home (07/16/2016 15:33:QS system process) Home (07/13/2016 16:09:QS system process) Home (08/06/2015 15:39:QS system process) Home (09/21/2014 09:45:QS system process) Work (08/06/2015 15:39:QS system process) Work (05/30/2015 17:55:QS system process) Work (09/21/2014 09:45:QS system process) N: [id number] (09/21/2014 09:45:QS system process) Next of Kin Name: MARY SHIPLEY (07/16/2016 15:33:QS system process) Next of Kin Name: DERRICK LORA (07/13/2016 16:09:QS system process) Next of Kin Name: JEYSON METZ (09/21/2014 09:45:QS system process) Next of Kin (07/16/2016 15:33:QS system process) Next of Kin (07/13/2016 16:09:QS system process) Next of Kin (09/21/2014 09:45:QS system process) Next of Kin Relationship: MO (07/16/2016 15:33:QS system process) Next of Kin Relationship: [place] (09/21/2014 09:45:QS system process) Date of : 1990 (09/21/2014 09:45:QS system process) Marital Status: Single (09/21/2014 09:45:QS system process) Sex: Female (09/21/2014 09:45:QS system process) Occupation: Other (01/06/2017 13:15:SADIQ Espino) Occupation- Other : [employer] (01/06/2017 13:15:SADIQ Espino) Race: (09/21/2014 09:45:QS system process) Ethnicity: Non- or (09/21/2014 09:45:QS system process) Jehovah'S Witness: Synagogue (09/21/2014 09:45:QS system process) Education: 12 (01/06/2017 13:15:SADIQ Espino) FOB Involved: Yes (01/06/2017 13:15:SADIQ Espino) Father of Baby Name: Derrick Gutierrez (01/06/2017 13:15:SADIQ Espino) DRUG AND ALCOHOL USE Alcohol: No (01/06/2017 13:15:SADIQ Espino) Cigarettes: Former Smoker. 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, on Subutex for opoid addiction (01/06/2017 13:15:[facility]) VACCINE HISTORY Influenza Vaccine: No (01/06/2017 13:15:[facility]) Pneumococcal Vaccine: No (01/06/2017 13:15:[facility]) Tetanus Vaccine: Uncertain (01/06/2017 13:15:[facility]) Tdap Vaccine: Uncertain (01/06/2017 13:15:[facility]) Hepatitis B Vaccine: Uncertain (01/06/2017 13:15:[facility]) Supervisor Welding Equipment Repairer: [facility] (01/06/2017 13:15:SADIQ Espino) Feeding Preference: Both (01/06/2017 13:15:SADIQ Espino) Circumcision: Yes (01/06/2017 13:15:SADIQ Espino) Classes Attended: No (01/06/2017 13:15:SADIQ Espino) Tubal Ligation: No (01/06/2017 13:15:SADIQ Espino) Tubal Authorization Signed: N/A (01/06/2017 13:15:SADIQ Espino) Consent: N/A (01/06/2017 13:15:SADIQ Espino) Consent Signed: N/A (01/06/2017 13:15:SADIQ Espino) Pain Management Plans: Epidural (01/06/2017 13:15:SADIQ Espino) Plans for Labor and Delivery: None (01/06/2017 13:15:SADIQ Espino) Support Person: Mary Weaks (01/06/2017 13:15:SADIQ Espino) Support Person Relationship: Mother (01/06/2017 13:15:SADIQ Espino) Cultural/Spritual Practice: No (01/06/2017 13:15:SADIQ Espino) Spir/Cult Dietary Needs: No (01/06/2017 13:15:SADIQ Espino) LIVING SITUATION/DISCHARGE PLAN Living Arrangements: House (01/06/2017 13:15:SADIQ Espino) Adequate Access to:: Electric; Heat; Refrigeration; Plumbing/Running water; Phone; Transportation (01/06/2017 13:15:SADIQ Espino) WIC Program: Yes (01/06/2017 13:15:SADIQ Espino) Discharge Supervisor Inspection Room Person: Linda Metz (01/06/2017 13:15:SADIQ Espino) Person to Help after Discharge: Mary Shipley (01/06/2017 13:15:SADIQ Espino) Specify Current Resource Used: medicaid, food stamps, wic (01/06/2017 13:15:SADIQ Espino) Outside Agency/High School Math Tutor: Yes (01/06/2017 13:15:SADIQ Espino) Specify Agency/ High School Math Tutor: Torri Paul [facility] (01/06/2017 13:15:SADIQ Espino) Car Seat for Discharge: Yes (01/06/2017 13:15:SADIQ Espino) Agency/Agent Handling Adoption: Pt undecided considering adoption (01/06/2017 13:15:SADIQ Espino) Pt Contact w/ Post : N/A (01/06/2017 13:15:SADIQ Espino) LABS Hemoglobin: 13.8 (10/04/2016 12:15:QS system process) Hemoglobin: 13.4 (10/01/2016 13:50:QS system process) Hemoglobin: 12.8 (09/29/2016 02:54:QS system process) Hemoglobin: 15.1 (09/02/2016 09:59:QS system process) Hemoglobin: 13.9 (08/10/2016 09:55:QS system process) Hemoglobin: 14.9 (08/08/2016 16:42:QS system process) Hemoglobin: 14.6 (07/16/2016 16:05:QS system process) Hemoglobin: 13.9 (05/30/2015 17:05:QS system process) Hematocrit: 42.8 (10/04/2016 12:15:QS system process) Hematocrit: 41.0 (10/01/2016 13:50:QS system process) Hematocrit: 37.7 (09/29/2016 02:54:QS system process) Hematocrit: 43.6 (09/02/2016 09:59:QS system process) Hematocrit: 40.3 (08/10/2016 09:55:QS system process) Hematocrit: 43.0 (08/08/2016 16:42:QS system process) Hematocrit: 43.2 (07/16/2016 16:05:QS system process) Hematocrit: 42.1 (05/30/2015 17:05:QS system process) MCV: 92 (10/04/2016 12:15:QS system process) MCV: 92 (10/01/2016 13:50:QS system process) MCV: 90 (09/29/2016 02:54:QS system process) MCV: 91 (09/02/2016 09:59:QS system process) MCV: 91 (08/10/2016 09:55:QS system process) MCV: 90 (08/08/2016 16:42:QS system process) MCV: 91 (07/16/2016 16:05:QS system process) MCV: 92 (05/30/2015 17:05:QS system process) OB/PREVIOUS HISTORY Previous Procedures: Ultrasound; NST (01/06/2017 13:15:Magi Ward [facility]) Current Procedures: Ultrasound; NST (01/06/2017 13:15:Magi Ward [facility]) History of Previous : No (01/06/2017 13:15:Magi Ward [facility]) History of Gestational Diabetes: No (01/06/2017 13:15:Magi Ward [facility]) History of PIH: No (01/06/2017 13:15:Magi Ward [facility]) History of Incompetent Cervix: No (01/06/2017 13:15:Magi Ward [facility]) History of Placenta Previa/Abrup: No (01/06/2017 13:15:Magi Ward [facility]) History of Macrosomia: Yes (01/06/2017 13:15:Magi Ward [facility]) History of IUGR: No (01/06/2017 13:15:Magi Ward [facility]) History of Hemorrhage: No (01/06/2017 13:15:Magi Ward [facility]) History of Loss/Stillborn: No (01/06/2017 13:15:Magi Ward [facility]) History of : No (01/06/2017 13:15:Magi Ward [facility]) History of D (Rh) Sensitization: No (01/06/2017 13:15:Magi Ward [facility]) History Recurrent Loss/Stillborn: No (01/06/2017 13:15:Magi Ward [facility]) History Depression/PP Depression: No (01/06/2017 13:15:Magi Ward [facility]) History of Uterine Anomaly/MICHELLE: No (01/06/2017 13:15:Magi Ward [facility]) History of Infertility: No (01/06/2017 13:15:Magi Ward [facility]) History of ART Treatment: No (01/06/2017 13:15:Magi Ward [facility]) History of MICHELLE: No (01/06/2017 13:15:Magi Ward [facility]) Comments Obstetrical History: G1 10lbs 11 oz G2 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, on Subutex for Percocet addiction (01/06/2017 13:15:SADIQ Espino) MEDICAL HISTORY Med Hx Diabetes: No (01/06/2017 13:15:SADIQ Espino) Med Hx Hypertension: No (01/06/2017 13:15:SADIQ Epsino) Med Hx Heart Disease: No (01/06/2017 13:15:SADIQ Espino) Med Hx Autoimmune Disorder: No (01/06/2017 13:15:SADIQ Espino) Med Hx Kidney Disease/UTI: No (01/06/2017 13:15:SADIQ Espino) Med Hx Neurologic/Epilepsy: No (01/06/2017 13:15:SADIQ Espino) Med Hx Psychiatric Disorders: Yes (01/06/2017 13:15:SADIQ Espino) Med Hx Hepatitis/Liver Disease: No (01/06/2017 13:15:SADIQ Espino) Med Hx Varicosities/Phlebitis: No (01/06/2017 13:15:SADIQ Espino) Med Hx Thyroid Dysfunction: No (01/06/2017 13:15:SADIQ Espino) Med Hx Trauma/Violence: No (01/06/2017 13:15:SADIQ Espino) Med Hx Blood Transfusion: Yes (01/06/2017 13:15:SADIQ Espino) Med Hx Pulmonary (Asthma,TB): No (01/06/2017 13:15:SADIQ Espino) Med Hx Breast: No (01/06/2017 13:15:SADIQ Espino) Med Hx MARBLE MACHINE OPERATOR Surgery: No (01/06/2017 13:15:SADIQ Espino) Med Hx Hospitalization/Surgery: Yes (01/06/2017 13:15:SADIQ Espino) Med Hx Anesthetic Complications: No (01/06/2017 13:15:SADIQ Espino) Med Hx Abnormal Pap Smear: Yes (01/06/2017 13:15:SADIQ Espino) Other Medical Diseases: No (01/06/2017 13:15:SADIQ Espino) Med Hx Significant Family Hx: No (01/06/2017 13:15:SADIQ Espino) Details of Med/Surg Hx: hospitalized for childbirth, Current opioid addiction on subutex (01/06/2017 13:15:SADIQ Espino) INFECTIOUS HISTORY Inf Hx Gonorrhea: No (01/06/2017 13:15:SADIQ Espino) Inf Hx Chlamydia: Yes (01/06/2017 13:15:SADIQ Espino) Inf Hx Syphilis: No (01/06/2017 13:15:SADIQ Espino) Inf Hx HIV/AIDS: No (01/06/2017 13:15:SADIQ Espino) Inf Hx Human Papilloma Virus: No (01/06/2017 13:15:SADIQ Espino) Inf Hx Pt/Partner Genital Herpes: No (01/06/2017 13:15:SADIQ Espino) Inf Hx Tuberculosis/Exposure: No (01/06/2017 13:15:SADIQ Espino) Inf Hx Hepatitis B,C: No (01/06/2017 13:15:SADIQ Espino) Inf Hx Rash or Viral Illness: No (01/06/2017 13:15:Magi Ward [facility]) Details of Infectious Hx: h/o chlamydia (01/06/2017 13:15:SADIQ Espino) GENETIC HISTORY Gen Hx Age >=35 at ASHANTI: No (01/06/2017 13:15:Magi Ward [facility]) Gen Hx Thalassemia: No (01/06/2017 13:15:Magi Ward [facility]) Gen Hx Congenital Heart Defect: Unknown (01/06/2017 13:15:Magi Ward [facility]) Gen Hx Neural Tube Defect: No (01/06/2017 13:15:Magi Ward [facility]) Gen Hx Down's Syndrome: Unknown (01/06/2017 13:15:Magi Ward [facility]) Gen Hx Moses-Sachs: No (01/06/2017 13:15:Magi Ward [facility]) Gen Hx Monica: No (01/06/2017 13:15:Magi Ward [facility]) Gen Hx Familial Dysautonomia: No (01/06/2017 13:15:Magi Ward, [facility]) Gen Hx Sickle Cell Disease/Trait: No (01/06/2017 13:15:Magi Ward [facility]) Gen Hx Hemophilia/Blood Disorder: No (01/06/2017 13:15:Magi Ward [facility]) Gen Hx Muscular Dystrophy: No (01/06/2017 13:15:Magi Ward, [facility]) Gen Hx Cystic Fibrosis: No (01/06/2017 13:15:Magi Ward [facility]) Gen Hx Huntingtons Chorea: No (01/06/2017 13:15:SADIQ Espino) Gen Hx Mental Retardation/Autism: Yes (01/06/2017 13:15:SADIQ Espino) Gen Hx Tested for Fragile X: No (01/06/2017 13:15:ASDIQ Espino) Gen Hx Other Inher/Chromosomal: No (01/06/2017 13:15:SADIQ Espino) Gen Hx Maternal Metabolic DO: No (01/06/2017 13:15:SADIQ Espino) Gen Hx Pt Father or FOB Defect: No (01/06/2017 13:15:SADIQ Espino) Gen Hx Other Genetic History: No (01/06/2017 13:15:SADIQ Espino) Gen Hx Drugs/Meds since LMP: No (01/06/2017 13:15:SADIQ Espino) Details of Genetic History: 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
--- NOTE | 2017-01-06 16:46 | L&D Flow Sheet ---
LD Flowsheet Datetime Report Generated by CPN: 01/06/2017 16:45 Datetime: 01/06/2017 13:45 NBP Sys/Patricia/Mean (mmHg): 102 (QS system process) : 58 (QS system process) : 71 (QS system process) Pulse: 79 (QS system process) Uterine Activity Monitor Mode: External ([place], RNC) Frequency (min): none ([place], RNC) Resting Tone (Palpate): Relaxed ([place]agi [place], RNC) Assessment A Monitor Mode: External US; Auscultation ([place], RNC) FHR Baseline Rate : 140 ([place], RNC) FHR Baseline Changes: No Baseline Change ([place], RNC) Variability: Moderate 6-25 bpm ([place], RNC) Accelerations: 15X15 ([place]agi [place], RNC) Decelerations: None ([place]agi [place], RNC) Communication LaborFlag: Labor (QS system process) Datetime: 01/06/2017 13:31 Pain Pain Scale: 2 ([place], RNC) Pain Presence: Intermittent ([place], RNC) Pain Type: Dull ([place], RNC) Pain Location: Head ([place]agi [place], RNC) Pain Goal: 2 ([place]agi [place], RNC) Pain Assessment Comments: no apparent distress noted ([place], RNC) Vaginal Exam Membrane Status: Intact ([place], RNC) Vaginal Bleeding: None ([place], RNC) Maternal Assessment Level of Consciousness: Fully Conscious ([place], RNC) DTR's/Clonus: DTRs 2+; No Clonus ([place]agi [place], RNC) Headache: Localized; Unilateral (Annotations: states headache started when she took Subutex on empty stomach today ) ([place]agi [place], RNC) Breath Sounds, Left: Clear and Equal ([place], RNC) Breath Sounds, Right: Clear and Equal ([place], RNC) Nausea/Vomiting: Denies ([place], RNC) RUQ Epigastric Pain: Denies ([place], RNC) Communication LaborFlag: Labor (QS system process) Datetime: 01/06/2017:30 Uterine Activity Monitor Mode: External; Palpation ([place], RNC) Frequency (min): none (Mgai Camp, RNC) Resting Tone (Palpate): Relaxed ([place]agi Camp, RNC) Assessment A Monitor Mode: External US; Auscultation ([place], RNC) FHR Baseline Rate : 135 ([place]agi [place], RNC) FHR Baseline Changes: No Baseline Change ([place], RNC) Variability: Moderate 6-25 bpm ([place], RNC) Accelerations: 15X15 ([place], RNC) Decelerations: None ([place], RNC) Datetime: 01/06/2017 13:14 NBP Sys/Patricia/Mean (mmHg): 106 (QS system process) : 59 (QS system process) : 75 (QS system process) Pulse: 93 (QS system process) Communication LaborFlag: Labor (QS system process) Datetime: 01/06/2017 13:11 Teaching Instructional Method: Demo; Verbal; Patient Instructed; Family/Support Person Instructed; Verbalized Understanding (SADIQ Espino) Plan of Care: Plan of Care Discussed (SADIQ Espino) Unit Routine: [place] to Room; Call Dunbar; Bed (SADIQ Espino) Teaching Comments: poc reviewed for labor check process and instructed on CCMS collection process (SADIQ Espino) Datetime: 01/06/2017 12:50 Vital Signs Stage of : Labor ([place], RNC)
--- NOTE | 2017-01-06 16:46 | Antepartum Discharge Summary ---
Antepartum DC Datetime Report Generated by CPN: 01/06/2017 16:45 DIET/ACTIVITY/RESTRICTIONS Diet: Regular (01/06/2017 16:28:[place]agi [place], RNC) Activity: Normal Activity (01/06/2017 16:28:[place], RNC) TEACHING/INSTRUCTIONS/REFERRALS Instructions Given To: patient and FOB (01/06/2017 16:28:[place], RNC) Instructions Understood: Patient Verbalized Understanding; Support Person Verbalized Understanding (01/06/2017 16:28:[place]agi Camp, RNC) Referrals: None (01/06/2017 16:28:[place], RNC) Educational Materials- Other: care notes reviewed and signed for Round Ligament pain (01/06/2017 16:28:[place]agi [place], RNC) DISCHARGE INFORMATION Discharged AMA: No (01/06/2017 16:28:[place]agi Camp, RNC) Discharge Date/Time: 01/06/2017 14:11 (01/06/2017 16:28:Magi Camp, RNC) Discharged To: Home (01/06/2017 16:28:[place], RNC) Discharge Provider Name: Varun Bennett (01/06/2017 16:28:[place], RNC) Accompanied By: FOB (01/06/2017 16:28:[place], RNC) Discharge Method: Ambulatory (01/06/2017 16:28:[place], RNC) Condition: Stable (01/06/2017 16:28:[place]agi [place], RNC) FOLLOW UP INFORMATION Follow Up With: [facility] (01/06/2017 16:28:SADIQ Espino) Follow Up On: As Scheduled (01/06/2017 16:28:SADIQ Espino) Follow Up Phone Number: [facility] - (01/06/2017 16:28:Magi Ward [facility]) Comments: Educated to increase po intake, frequent small meals, rest . Return for worsening symptoms (01/06/2017 16:28:Magi Ward [facility]) GENERAL INSTR-CALL PROVIDER IF: Contractions: Contractions or cramps become more frequent than 8 in one hour or 4 in 20 minutes (01/06/2017 16:28:Magi Ward [facility]) Pressure: Pressure in your vagina or lower abdomen that may feel like the baby is pushing down (01/06/2017 16:28:Magi Ward [facility]) Period Like Cramps: Period-like cramps or low dull backache that may come and go (01/06/2017 16:28:Magi Ward [facility]) Gush of Fluid/Blood: Gush of fluid or blood from your vagina (it is normal to have spotting after vaginal exam or intercourse) (01/06/2017 16:28:Magi Ward [facility]) ADDITIONAL INSTRUCTIONS N/V Frequent Meals: Eat small frequent meals (01/06/2017 16:28:SADIQ Espino) Travel Hydration: Drink plenty of water, low sodium and noncaffeinated drinks (01/06/2017 16:28:SADIQ Espino) Travel Medications: DO NOT take any medication that is not approved by your physician first (01/06/2017 16:28:SADIQ Espino)
--- NOTE | 2017-01-06 22:46 | L&D Discharge Summary ---
OB Discharge Summary Datetime Report Generated by CPN: 01/06/2017 22:45 DISCHARGE DIAGNOSIS Diagnosis/Symptoms: Round Ligament Syndrome Diagnoses/Symptoms Other: iup 27+6 Gestation: 27.6 Number of Babies in Womb: 1 Parity: 1 DIET/ACTIVITY/RESTRICTIONS Diet: Regular Activity: Normal Activity TEACHING/INSTRUCTIONS/REFERRALS Instructions Given To: patient and FOB Instructions Understood: Patient Verbalized Understanding; Support Person Verbalized Understanding Referrals: None Educational Materials- Other: care notes reviewed and signed for Round Ligament pain DISCHARGE INFORMATION Discharged AMA: No Discharge Date/Time: 01/06/2017 14:11 Discharged To: Home Discharge Provider Name: Varun Bennett Accompanied By: FOB Discharge Method: Ambulatory Condition: Stable FOLLOW UP INFORMATION Follow Up With: [facility] Follow Up On: As Scheduled Follow Up Phone Number: [facility] - Comments: Educated to increase po intake, frequent small meals, rest . Return for worsening symptoms GENERAL INSTR-CALL PROVIDER IF: Contractions: Contractions or cramps become more frequent than 8 in one hour or 4 in 20 minutes Pressure: Pressure in your vagina or lower abdomen that may feel like the baby is pushing down Period Like Cramps: Period-like cramps or low dull backache that may come and go Gush of Fluid/Blood: Gush of fluid or blood from your vagina (it is normal to have spotting after vaginal exam or intercourse)
--- NOTE | 2017-01-06 22:46 | L&D General Admission ---
General Admit Datetime Report Generated by CPN: 01/06/2017 22:45 INFORMATION Patient Age: 24 (09/21/2014 09:45:QS system process) EDC: 04/01/2017 00:00 (01/06/2017 13:15:SADIQ Espino) : 2 (01/06/2017 13:15:SADIQ Espino) Para: 1 (01/06/2017 13:15:SADIQ Espino) Term: 1 (01/06/2017 13:15:SADIQ Espino) : 0 (01/06/2017 13:15:SAIDQ Espino) Spontaneous Abortions: 0 (01/06/2017 13:15:SADIQ Espino) Induced Abortions: 0 (01/06/2017 13:15:SADIQ Espino) Livin (01/06/2017 13:15:SADIQ Espino) Cesareans: 0 (01/06/2017 13:15:SADIQ Espino) VBACs: 0 (01/06/2017 13:15:SADIQ Espino) Ectopic: 0 (01/06/2017 13:15:[facility], [facility]) Multiple Births: 0 ([facility]/06/2017 [facility] Baby, Number in Womb: 1 (01/06/2017 13:15:Magi Ward, [facility]) CARE Primary Brokerage Coordinator: [facility] (01/06/2017 13:15:Magi Ward, [facility]) Month of 1st Visit: July (01/06/2017 13:15:Magi Ward, [facility]) Adequate Care: Yes (01/06/2017 13:15:Magi Ward, [facility]) Prepregnancy Weight (lb): 130 (01/06/2017 13:15:Magi Ward [facility]) Prepregnancy Weight (kg): 59.1 (01/06/2017 13:15:QS system process) Height (in): 67 (01/06/2017 13:08:QS system process) ALLERGIES Medication Allergy: No (01/06/2017 13:15:Magi Ward SADIQ) Medication Allergies: No Known Drug Allergies (01/06/2017) (01/06/2017 13:08:QS system process) Medication Allergies: No Known Drug Allergies (10/18/2016) (10/18/2016 10:15:QS system process) Medication Allergies: etonogestrel/Hair Loss, Mood (08/10/2016) (08/10/2016 09:18:QS system process) Medication Allergies: etonogestrel/Hair Loss, Mood (08/08/2016) (08/08/2016 13:43:QS system process) Medication Allergies: etonogestrel/Hair Loss, Mood (07/16/2016) (07/16/2016 15:33:QS system process) Medication Allergies: Etonogestrel/Hair Loss, Mood (08/06/2015) (08/06/2015 15:21:QS system process) Medication Allergies: Etonogestrel/Hair Loss, Mood (05/30/2015) (05/30/2015 17:55:QS system process) Medication Allergies: No Known Allergies (05/30/2015) (05/30/2015 16:19:QS system process) Medication Allergies: No Known Allergies (09/21/2014) (09/21/2014 09:45:QS system process) Latex Allergy: No Latex Allergies (01/06/2017 13:15:SADIQ Espino) COMMUNICATION Primary Language: Macanese (01/06/2017 13:15:SADIQ Espino) Medical Tx Preferred Language: Macanese (01/06/2017 13:15:SADIQ Espino) Communication Barrier(s): None (01/06/2017 13:15:SADIQ Espino) DEMOGRAPHICS Address: [address] [place] [id number] (01/06/2017 12:51:QS system process) Address: [address] [place] [id number] (09/21/2014 09:45:QS system process) Zipcode: [id number] (01/06/2017 12:51:QS system process) Zipcode: [phone] (09/21/2014 09:45:QS system process) Home (07/16/2016 15:33:QS system process) Home (07/13/2016 16:09:QS system process) Home (08/06/2015 15:39:QS system process) Home (09/21/2014 09:45:QS system process) Work (08/06/2015 15:39:QS system process) Work (05/30/2015 17:55:QS system process) Work (09/21/2014 09:45:QS system process) N: [phone] (09/21/2014 09:45:QS system process) Next of Kin Name: MARY SHIPLEY (07/16/2016 15:33:QS system process) Next of Kin Name: DERRICK LORA (07/13/2016 16:09:QS system process) Next of Kin Name: JEYSON METZ (09/21/2014 09:45:QS system process) Next of Kin (07/16/2016 15:33:QS system process) Next of Kin (07/13/2016 16:09:QS system process) Next of Kin (09/21/2014 09:45:QS system process) Next of Kin Relationship: MO (07/16/2016 15:33:QS system process) Next of Kin Relationship: [place] (09/21/2014 09:45:QS system process) Date of : 1990 (09/21/2014 09:45:QS system process) Marital Status: Single (09/21/2014 09:45:QS system process) Sex: Female (09/21/2014 09:45:QS system process) Occupation: Other (01/06/2017 13:15:SADIQ Espino) Occupation- Other : [employer] (01/06/2017 13:15:SADIQ Espino) Race: (09/21/2014 09:45:QS system process) Ethnicity: Non- or (09/21/2014 09:45:QS system process) Congregation: Protestant (09/21/2014 09:45:QS system process) Education: 12 (01/06/2017 13:15:SADIQ Espino) FOB Involved: Yes (01/06/2017 13:15:SADIQ Espino) Father of Baby Name: Derrick Gutierrez (01/06/2017 13:15:SADIQ Espino) DRUG AND ALCOHOL USE Alcohol: No (01/06/2017 13:15:SADIQ Espino) Cigarettes: Former Smoker. 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, on Subutex for opoid addiction (01/06/2017 13:15:[facility]) VACCINE HISTORY Influenza Vaccine: No (01/06/2017 13:15:[facility]) Pneumococcal Vaccine: No (01/06/2017 13:15:[facility]) Tetanus Vaccine: Uncertain (01/06/2017 13:15:[facility]) Tdap Vaccine: Uncertain (01/06/2017 13:15:[facility]) Hepatitis B Vaccine: Uncertain (01/06/2017 13:15:[facility]) Front Elevator Operator: [facility] (01/06/2017 13:15:SADIQ Espino) Feeding Preference: Both (01/06/2017 13:15:SADIQ Espino) Circumcision: Yes (01/06/2017 13:15:SADIQ Espino) Classes Attended: No (01/06/2017 13:15:SADIQ Espino) Tubal Ligation: No (01/06/2017 13:15:SADIQ Espino) Tubal Authorization Signed: N/A (01/06/2017 13:15:SADIQ Espino) Consent: N/A (01/06/2017 13:15:SADIQ Espino) Consent Signed: N/A (01/06/2017 13:15:SADIQ Espino) Pain Management Plans: Epidural (01/06/2017 13:15:SADIQ Espino) Plans for Labor and Delivery: None (01/06/2017 13:15:SADIQ Espino) Support Person: Mary Weaks (01/06/2017 13:15:SADIQ Espino) Support Person Relationship: Mother (01/06/2017 13:15:SADIQ Espino) Cultural/Spritual Practice: No (01/06/2017 13:15:SADIQ Espino) Spir/Cult Dietary Needs: No (01/06/2017 13:15:SADIQ Espino) LIVING SITUATION/DISCHARGE PLAN Living Arrangements: House (01/06/2017 13:15:SADIQ Espino) Adequate Access to:: Electric; Heat; Refrigeration; Plumbing/Running water; Phone; Transportation (01/06/2017 13:15:SADIQ Espino) WIC Program: Yes (01/06/2017 13:15:SADIQ Espino) Discharge Mother Helper Person: Linda Metz (01/06/2017 13:15:SADIQ Espino) Person to Help after Discharge: Mary Shipley (01/06/2017 13:15:SADIQ Espino) Specify Current Resource Used: medicaid, food stamps, wic (01/06/2017 13:15:SADIQ Espino) Outside Agency/Swimming Instructor: Yes (01/06/2017 13:15:SADIQ Espino) Specify Agency/ Swimming Instructor: Torri Paul [facility] (01/06/2017 13:15:SADIQ Espino) Car Seat for Discharge: Yes (01/06/2017 13:15:SADIQ Espino) Agency/Agent Handling Adoption: Pt undecided considering adoption (01/06/2017 13:15:SADIQ Espino) Pt Contact w/infant Post : N/A (01/06/2017 13:15:SADIQ Espino) LABS Blood Type: A Positive (01/06/2017 13:15:SADIQ Espino) Antibody Screen: negative (01/06/2017 13:15:SADIQ Espino) Hemoglobin: 13.8 (10/04/2016 12:15:QS system process) Hemoglobin: 13.4 (10/01/2016 13:50:QS system process) Hemoglobin: 12.8 (09/29/2016 02:54:QS system process) Hemoglobin: 15.1 (09/02/2016 09:59:QS system process) Hemoglobin: 13.9 (08/10/2016 09:55:QS system process) Hemoglobin: 14.9 (08/08/2016 16:42:QS system process) Hemoglobin: 14.6 (07/16/2016 16:05:QS system process) Hemoglobin: 13.9 (05/30/2015 17:05:QS system process) Hematocrit: 42.8 (10/04/2016 12:15:QS system process) Hematocrit: 41.0 (10/01/2016 13:50:QS system process) Hematocrit: 37.7 (09/29/2016 02:54:QS system process) Hematocrit: 43.6 (09/02/2016 09:59:QS system process) Hematocrit: 40.3 (08/10/2016 09:55:QS system process) Hematocrit: 43.0 (08/08/2016 16:42:QS system process) Hematocrit: 43.2 (07/16/2016 16:05:QS system process) Hematocrit: 42.1 (05/30/2015 17:05:QS system process) MCV: 92 (10/04/2016 12:15:QS system process) MCV: 92 (10/01/2016 13:50:QS system process) MCV: 90 (09/29/2016 02:54:QS system process) MCV: 91 (09/02/2016 09:59:QS system process) MCV: 91 (08/10/2016 09:55:QS system process) MCV: 90 (08/08/2016 16:42:QS system process) MCV: 91 (07/16/2016 16:05:QS system process) MCV: 92 (05/30/2015 17:05:QS system process) Group Beta Strep: unknown (01/06/2017 13:15:SADIQ Espino) RPR/VDRL: Nonreactive (01/06/2017 13:15:SADIQ Espino) HIV Results: negative (01/06/2017 13:15:Magi Ward RN) Hepatitis B: Negative (01/06/2017 13:15:SADIQ Espino) Rubella: Immune (01/06/2017 13:15:SADIQ Espino) OB/PREVIOUS HISTORY Previous Procedures: Ultrasound; NST (01/06/2017 13:15:Magi Ward RN) Current Procedures: Ultrasound; NST (01/06/2017 13:15:Magi Ward [facility]) History of Previous : No (01/06/2017 13:15:Magi Ward [facility]) History of Gestational Diabetes: No (01/06/2017 13:15:Magi Ward [facility]) History of PIH: No (01/06/2017 13:15:Magi Ward [facility]) History of Incompetent Cervix: No (01/06/2017 13:15:Magi Ward [facility]) History of Placenta Previa/Abrup: No (01/06/2017 13:15:Magi Ward [facility]) History of Macrosomia: Yes (01/06/2017 13:15:Magi Ward [facility]) History of IUGR: No (01/06/2017 13:15:Magi Ward [facility]) History of Hemorrhage: No (01/06/2017 13:15:Magi Ward [facility]) History of Loss/Stillborn: No (01/06/2017 13:15:Magi Ward [facility]) History of : No (01/06/2017 13:15:Magi Ward [facility]) History of D (Rh) Sensitization: No (01/06/2017 13:15:SADIQ Espino) History Recurrent Loss/Stillborn: No (01/06/2017 13:15:SADIQ Espino) History Depression/PP Depression: No (01/06/2017 13:15:SADIQ Espino) History of Uterine Anomaly/MICHELLE: No (01/06/2017 13:15:SADIQ Espino) History of Infertility: No (01/06/2017 13:15:SADIQ Espino) History of ART Treatment: No (01/06/2017 13:15:SADIQ Espino) History of MICHELLE: No (01/06/2017 13:15:SADIQ Espino) Comments Obstetrical History: G1 10lbs 11 oz G2 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, on Subutex for Percocet addiction (01/06/2017 13:15:SADIQ Espino) MEDICAL HISTORY Med Hx Diabetes: No (01/06/2017 13:15:SADIQ Espino) Med Hx Hypertension: No (01/06/2017 13:15:SADIQ Espino) Med Hx Heart Disease: No (01/06/2017 13:15:SADIQ Espino) Med Hx Autoimmune Disorder: No (01/06/2017 13:15:SADIQ Espino) Med Hx Kidney Disease/UTI: No (01/06/2017 13:15:SADIQ Espino) Med Hx Neurologic/Epilepsy: No (01/06/2017 13:15:SADIQ Espino) Med Hx Psychiatric Disorders: Yes (01/06/2017 13:15:SADIQ Espino) Med Hx Hepatitis/Liver Disease: No (01/06/2017 13:15:SADIQ Espino) Med Hx Varicosities/Phlebitis: No (01/06/2017 13:15:SADIQ Espino) Med Hx Thyroid Dysfunction: No (01/06/2017 13:15:SADIQ Espino) Med Hx Trauma/Violence: No (01/06/2017 13:15:SADIQ Espino) Med Hx Blood Transfusion: Yes (01/06/2017 13:15:SADIQ Espino) Med Hx Pulmonary (Asthma,TB): No (01/06/2017 13:15:SADIQ Espino) Med Hx Breast: No (01/06/2017 13:15:SADIQ Espino) Med Hx ADVANCED MANUFACTURING TECHNICIAN Surgery: No (01/06/2017 13:15:SADIQ Espino) Med Hx Hospitalization/Surgery: Yes (01/06/2017 13:15:SADIQ Espino) Med Hx Anesthetic Complications: No (01/06/2017 13:15:SADIQ Espino) Med Hx Abnormal Pap Smear: Yes (01/06/2017 13:15:SADIQ Espino) Other Medical Diseases: No (01/06/2017 13:15:SADIQ Espino) Med Hx Significant Family Hx: No (01/06/2017 13:15:SADIQ Espino) Details of Med/Surg Hx: hospitalized for childbirth, Current opioid addiction on subutex (01/06/2017 13:15:SADIQ Espino) INFECTIOUS HISTORY Inf Hx Gonorrhea: No (01/06/2017 13:15:SADIQ Espino) Inf Hx Chlamydia: Yes (01/06/2017 13:15:Magi Ward [facility]) Inf Hx Syphilis: No ([facility]06[facility]2017 [facility] Inf Hx HIV/AIDS: No (01/06/2017 [facility] Inf Hx Human Papilloma Virus: No (01/06/2017 13:[facility] Inf Hx Pt/Partner Genital Herpes: No (01/06/2017 13:[facility] Inf Hx Tuberculosis/Exposure: No (01/06/2017 13:[facility] Inf Hx Hepatitis B,C: No (01/06/2017 13:15:[facility]) Inf Hx Rash or Viral Illness: No (01/06/2017 [facility] Details of Infectious Hx: h/o chlamydia (01/06/2017 13:[facility] GENETIC HISTORY Gen Hx Age >=35 at ASHANTI: No (01/06/2017 13:15:Magi Ward [facility]) Gen Hx Thalassemia: No (01/06/2017 13:[facility] Gen Hx Congenital Heart Defect: Unknown (01/06/2017 13:15:Magi Ward [facility]) Gen Hx Neural Tube Defect: No (01/06/2017 13:15:Magi Ward [facility]) Gen Hx Down's Syndrome: Unknown (01/06/2017 13:15:Magi Ward [facility]) Gen Hx Moses-Sachs: No (01/06/2017 13:15:Magi Ward [facility]) Gen Hx Monica: No (01/06/2017 13:15:SADIQ Espino) Gen Hx Familial Dysautonomia: No (01/06/2017 13:15:SADIQ Espino) Gen Hx Sickle Cell Disease/Trait: No (01/06/2017 13:15:SADIQ Espino) Gen Hx Hemophilia/Blood Disorder: No (01/06/2017 13:15:SADIQ Espino) Gen Hx Muscular Dystrophy: No (01/06/2017 13:15:SADIQ Espino) Gen Hx Cystic Fibrosis: No (01/06/2017 13:15:SADIQ Espino) Gen Hx Huntingtons Chorea: No (01/06/2017 13:15:SADIQ Espino) Gen Hx Mental Retardation/Autism: Yes (01/06/2017 13:15:SADIQ Espino) Gen Hx Tested for Fragile X: No (01/06/2017 13:15:SADIQ Espino) Gen Hx Other Inher/Chromosomal: No (01/06/2017 13:15:SADIQ Espino) Gen Hx Maternal Metabolic DO: No (01/06/2017 13:15:SADIQ Espino) Gen Hx Pt Father or FOB Defect: No (01/06/2017 13:15:SADIQ Espino) Gen Hx Other Genetic History: No (01/06/2017 13:15:SADIQ Espino) Gen Hx Drugs/Meds since LMP: No (01/06/2017 13:15:SADIQ Espino) Details of Genetic History: dx with Down's syndrome and 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
--- NOTE | 2017-01-06 22:46 | Antepartum Discharge Summary ---
Antepartum DC Datetime Report Generated by CPN: 01/06/2017 22:45 DIET/ACTIVITY/RESTRICTIONS Diet: Regular (01/06/2017 16:28:Magi Camp, [facility]) Activity: Normal Activity (01/06/2017 16:28:Magi Camp, [facility]) TEACHING/INSTRUCTIONS/REFERRALS Instructions Given To: patient and FOB (01/06/2017 16:28:Magi Camp, [facility]) Instructions Understood: Patient Verbalized Understanding; Support Person Verbalized Understanding (01/06/2017 16:28:Magi Camp, [facility]) Referrals: None (01/06/2017 16:28:Magi Camp, [facility]) Educational Materials- Other: care notes reviewed and signed for Round Ligament pain (01/06/2017 16:28:Magi Camp, [facility]) DISCHARGE INFORMATION Discharged AMA: No (01/06/2017 16:28:Magi Camp, [facility]) Discharge Date/Time: 01/06/2017 14:11 (01/06/2017 16:28:Magi Camp, [facility]) Discharged To: Home (01/06/2017 16:28:Magi Camp, [facility]) Discharge Provider Name: Varun Bennett (01/06/2017 16:28:[place]agi [place], [facility]) Accompanied By: FOB (01/06/2017 16:28:Magi Camp, [facility]) Discharge Method: Ambulatory (01/06/2017 16:28:Magi Camp, [facility]) Condition: Stable (01/06/2017 16:28:Magi Camp, [facility]) FOLLOW UP INFORMATION Follow Up With: [facility] (01/06/2017 16:28:SADIQ Espino) Follow Up On: As Scheduled (01/06/2017 16:28:SADIQ Espino) Follow Up Phone Number: [facility] - (01/06/2017 16:28:Magi Ward Rodolfo) Comments: Educated to increase po intake, frequent small meals, rest . Return for worsening symptoms (01/06/2017 16:28:Magi Ward [facility]) GENERAL INSTR-CALL PROVIDER IF: Contractions: Contractions or cramps become more frequent than 8 in one hour or 4 in 20 minutes (01/06/2017 16:28:Magi Ward [facility]) Pressure: Pressure in your vagina or lower abdomen that may feel like the baby is pushing down (01/06/2017 16:28:Magi Ward [facility]) Period Like Cramps: Period-like cramps or low dull backache that may come and go (01/06/2017 16:28:Magi Ward [facility]) Gush of Fluid/Blood: Gush of fluid or blood from your vagina (it is normal to have spotting after vaginal exam or intercourse) (01/06/2017 16:28:Magi Ward [facility]) ADDITIONAL INSTRUCTIONS N/V Frequent Meals: Eat small frequent meals (01/06/2017 16:28:SADIQ Espino) Travel Hydration: Drink plenty of water, low sodium and noncaffeinated drinks (01/06/2017 16:28:SADIQ Espino) Travel Medications: DO NOT take any medication that is not approved by your physician first (01/06/2017 16:28:SADIQ Espino)
--- NOTE | 2017-01-06 22:46 | L&D Current Admission ---
Current Admit Datetime Report Generated by CPN: 01/06/2017 22:45 ADMISSION INFORMATION Chief Complaint: Other (Annotations: lower left quad pain) (01/06/2017 13:31:Magi Camp, [facility])
--- NOTE | 2017-01-06 22:46 | L&D Flow Sheet ---
LD Flowsheet Datetime Report Generated by CPN: 01/06/2017 22:45 Datetime: 01/06/2017 14:03 Patient Care Comments: EFM off for discharge to home. See discharge summary (Magi Camp, [facility]) Datetime: 01/06/2017 14:00 Uterine Activity Monitor Mode: External (Magi Camp, [facility]) Frequency (min): none (Magi Camp, [facility]) Resting Tone (Palpate): Relaxed (Magi Camp, [facility]) Datetime: 01/06/2017 13:58 Communication Communication: Report Given to @ H Donald CNM ([place]agi [place], [facility]) Communication Comments: Donald on unit report of complaint, vs, ua results strip reviewed and discharge orders received (Magi Camp, [facility]) Datetime: 01/06/2017 13:45 NBP Sys/Patricia/Mean (mmHg): 102 (QS system process) : 58 (QS system process) : 71 (QS system process) Pulse: 79 (QS system process) Uterine Activity Monitor Mode: External (Magi Camp, [facility]) Frequency (min): none (Magi Camp, [facility]) Resting Tone (Palpate): Relaxed (Magi Camp, [facility]) Assessment A Monitor Mode: External US; Auscultation (Magi Camp, [facility]) FHR Baseline Rate : 140 (Magi Camp, [facility]) FHR Baseline Changes: No Baseline Change (Magi Camp, [facility]) Variability: Moderate 6-25 bpm (Magi Camp, [facility]) Accelerations: 15X15 (Magi Camp, [facility]) Decelerations: None (Magi Camp, [facility]) LaborFlag: Labor (QS system process) Datetime: 01/06/2017 13:31 Pain Pain Scale: 2 (Magi Camp, [facility]) Pain Presence: Intermittent (Magi Camp, [facility]) Pain Type: Dull (Magi Camp, [facility]) Pain Location: Head (Magi Camp, [facility]) Pain Goal: 2 (Magi Camp, [facility]) Pain Assessment Comments: no apparent distress noted (Magi Camp, [facility]) Vaginal Exam Membrane Status: Intact (Magi Camp, [facility]) Vaginal Bleeding: None (Magi [place], [facility]) Maternal Assessment Level of Consciousness: Fully Conscious (Magi Camp, [facility]) DTR's/Clonus: DTRs 2+; No Clonus (Magi Camp, [facility]) Headache: Localized; Unilateral (Annotations: states headache started when she took Subutex on empty stomach today ) (Magi Camp, [facility]) Breath Sounds, Left: Clear and Equal (Magi Camp, [facility]) Breath Sounds, Right: Clear and Equal (Magi Camp, [facility]) Nausea/Vomiting: Denies (Magi Camp, [facility]) RUQ Epigastric Pain: Denies (Magi Camp, [facility]) LaborFlag: Labor (QS system process) Datetime: 01/06/2017 13:30 Uterine Activity Monitor Mode: External; Palpation (Magi Camp, [facility]) Frequency (min): none (Magi Camp, [facility]) Resting Tone (Palpate): Relaxed (Magi Camp, [facility]) Assessment A Monitor Mode: External US; Auscultation (Magi Camp, [facility]) FHR Baseline Rate : 135 (Magi Camp, [facility]) FHR Baseline Changes: No Baseline Change (Magi Camp, [facility]) Variability: Moderate 6-25 bpm (Magi Camp, [facility]) Accelerations: 15X15 (Magi Camp, [facility]) Decelerations: None (Magi Camp, [facility]) Datetime: 01/06/2017 13:14 NBP Sys/Patricia/Mean (mmHg): 106 (QS system process) : 59 (QS system process) : 75 (QS system process) Pulse: 93 (QS system process) LaborFlag: Labor (QS system process) Datetime: 01/06/2017 13:13 Patient Care I/O Interventions: Popsicle; Clear Liquids Given (Magi Camp, [facility]) Communication Comments: H Donald CNM on unit on arrival aware of c/o left and right ([place]agi [place], [facility]) Datetime: 01/06/2017 13:12 Comments: EFM explained and applied, repositioned to left lateral . (Magi Camp, [facility]) Datetime: 01/06/2017 13:11 Teaching Instructional Method: Demo; Verbal; Patient Instructed; Family/Support Person Instructed; Verbalized Understanding (Magi Camp, [facility]) Plan of Care: Plan of Care Discussed ([facility], [facility]) Unit Routine: [place] to Room; Call [place]; Bed ([facility], [facility]) Teaching Comments: poc reviewed for labor check process and instructed on CCMS collection process (Magi Camp, [facility]) Datetime: 01/06/2017 12:50 Vital Signs Stage of : Labor (Magi Camp, [facility])
--- NOTE | 2017-01-07 04:46 | L&D Current Admission ---
Current Admit Datetime Report Generated by CPN: 01/07/2017 04:45 ADMISSION INFORMATION Chief Complaint: Other (Annotations: lower left quad pain) (01/06/2017 13:31:Magi Camp, [facility])
--- NOTE | 2017-01-07 04:46 | L&D Discharge Summary ---
OB Discharge Summary Datetime Report Generated by CPN: 01/07/2017 04:45 DISCHARGE DIAGNOSIS Diagnosis/Symptoms: Round Ligament Syndrome Diagnoses/Symptoms Other: iup 27+6 Gestation: 27.6 Number of Babies in Womb: 1 Parity: 1 DIET/ACTIVITY/RESTRICTIONS Diet: Regular Activity: Normal Activity TEACHING/INSTRUCTIONS/REFERRALS Instructions Given To: patient and FOB Instructions Understood: Patient Verbalized Understanding; Support Person Verbalized Understanding Referrals: None Educational Materials- Other: care notes reviewed and signed for Round Ligament pain DISCHARGE INFORMATION Discharged AMA: No Discharge Date/Time: 01/06/2017 14:11 Discharged To: Home Discharge Provider Name: Varun Bennett Accompanied By: FOB Discharge Method: Ambulatory Condition: Stable FOLLOW UP INFORMATION [facility]: As Scheduled [facility] Comments: Educated to increase po intake, frequent small meals, rest . Return for worsening symptoms GENERAL INSTR-CALL PROVIDER IF: Contractions: Contractions or cramps become more frequent than 8 in one hour or 4 in 20 minutes Pressure: Pressure in your vagina or lower abdomen that may feel like the baby is pushing down Period Like Cramps: Period-like cramps or low dull backache that may come and go Gush of Fluid/Blood: Gush of fluid or blood from your vagina (it is normal to have spotting after vaginal exam or intercourse)
--- NOTE | 2017-01-07 04:46 | Antepartum Discharge Summary ---
Antepartum DC Datetime Report Generated by CPN: 01/07/2017 04:45 DIET/ACTIVITY/RESTRICTIONS Diet: Regular (01/06/2017 16:28:Magi Camp, [facility]) Activity: Normal Activity (01/06/2017 16:28:Magi Camp, [facility]) TEACHING/INSTRUCTIONS/REFERRALS Instructions Given To: patient and FOB (01/06/2017 16:28:Magi Camp, [facility]) Instructions Understood: Patient Verbalized Understanding; Support Person Verbalized Understanding (01/06/2017 16:28:Magi Camp, [facility]) Referrals: None (01/06/2017 16:28:Magi Camp, [facility]) Educational Materials- Other: care notes reviewed and signed for Round Ligament pain (01/06/2017 16:28:Magi Camp, [facility]) DISCHARGE INFORMATION Discharged AMA: No (01/06/2017 16:28:Magi Camp, [facility]) Discharge Date/Time: 01/06/2017 14:11 (01/06/2017 16:28:Magi Camp, [facility]) Discharged To: Home (01/06/2017 16:28:Magi Camp, [facility]) Discharge Provider Name: Varun Bennett (01/06/2017 16:28:Magi Camp, [facility]) Accompanied By: FOB (01/06/2017 16:28:Magi Camp, [facility]) Discharge Method: Ambulatory (01/06/2017 16:28:Magi Camp, [facility]) Condition: Stable (01/06/2017 16:28:Magi Camp, [facility]) FOLLOW UP INFORMATION Follow Up With: [facility] (01/06/2017 16:28:SADIQ Espino) Follow Up On: As Scheduled (01/06/2017 16:28:SADIQ Espino) Follow Up Phone Number: [facility] - (01/06/2017 16:28:Magi Ward Rodolfo) Comments: Educated to increase po intake, frequent small meals, rest . Return for worsening symptoms (01/06/2017 16:28:Magi Ward [facility]) GENERAL INSTR-CALL PROVIDER IF: Contractions: Contractions or cramps become more frequent than 8 in one hour or 4 in 20 minutes (01/06/2017 16:28:Magi Ward [facility]) Pressure: Pressure in your vagina or lower abdomen that may feel like the baby is pushing down (01/06/2017 16:28:Magi Ward [facility]) Period Like Cramps: Period-like cramps or low dull backache that may come and go (01/06/2017 16:28:Magi Ward [facility]) Gush of Fluid/Blood: Gush of fluid or blood from your vagina (it is normal to have spotting after vaginal exam or intercourse) (01/06/2017 16:28:Magi Ward [facility]) ADDITIONAL INSTRUCTIONS N/V Frequent Meals: Eat small frequent meals (01/06/2017 16:28:SADIQ Espino) Travel Hydration: Drink plenty of water, low sodium and noncaffeinated drinks (01/06/2017 16:28:SADIQ Espino) Travel Medications: DO NOT take any medication that is not approved by your physician first (01/06/2017 16:28:SADIQ Espino)
--- NOTE | 2017-01-07 04:46 | L&D Admission Assessment ---
LD ADM ASMT Datetime Report Generated by CPN: 01/07/2017 04:45 PATIENT ASSESSMENT Assessment Type: Triage (01/06/2017 13:31:Magi Hastings, [facility]) WEIGHT Weight (lb): 156 (01/06/2017 13:08:QS system process) Weight (kg): 70.9 (01/06/2017 13:08:QS system process) Total Wt Gain (lb): 26 (01/06/2017 13:15:QS system process) Wt Gain (kg): 11.9 (01/06/2017 13:15:QS system process) PAIN Pain Scale: 2 (01/06/2017 13:31:Magi Camp, [facility]) Pain Presence: Intermittent (01/06/2017 13:31:Magi Camp, [facility]) Pain Type: Dull (01/06/2017 13:31:Magi Camp, [facility]) Pain Location: Head (01/06/2017 13:31:Magi Camp, [facility]) Pain Goal: 2 (01/06/2017 13:31:Magi Camp, [facility]) Pain Related to Contraction: No (01/06/2017 13:31:Magi Camp, [facility]) Pain Comments: no apparent distress noted (01/06/2017 13:31:Magi Camp, [facility]) CONTRACTIONS Frequency (min): none (01/06/2017 14:00:Magi Camp, [facility]) Frequency (min): none (01/06/2017 13:45:Magi Camp, [facility]) Frequency (min): none (01/06/2017 13:30:Magi Camp, [facility]) Resting Tone [place]: Relaxed (01/06/2017 14:00:SADIQ Espino) Resting Tone [place]: Relaxed (01/06/2017 13:45:Magi Ward [facility]) Resting Tone [place]: Relaxed (01/06/2017 13:30:Magi Ward, [facility]) VAGINAL EXAM Membranes Status: Intact (01/06/2017 13:31:SADIQ Espino) NEURO Level of Consciousness: Fully Conscious (01/06/2017 13:31:SADIQ Espino) DTR's/Clonus: DTRs 2+; No Clonus (01/06/2017 13:31:SADIQ Espino) Headache: Localized; Unilateral (Annotations: states headache started when she took Subutex on empty stomach today ) (01/06/2017 13:31:SADIQ Espino) Dizziness: No (01/06/2017 13:31:SADIQ Espino) Blurred Vision: No (01/06/2017 13:31:SADIQ Espino) Extremity Numbness/Tingling : None (01/06/2017 13:31:Magi Camp, [facility]) Extremity Movement: Full Range of Motion (01/06/2017 13:31:Magi Camp, [facility]) CARDIOVASCULAR Heart Rhythm: Regular (01/06/2017 13:31:Magi Camp, [facility]) Nailbeds: [place] (01/06/2017 13:31:Magi Camp, [facility]) Capillary Refill: Less than 3 Seconds (01/06/2017 13:31:Magi Camp, [facility]) Lower Extremities Edema: Bilateral Lower Extremities (01/06/2017 13:31:Magi Camp, [facility]) Lower Extremities Edema Degree: 1+ (01/06/2017 13:31:Magi Camp, [facility]) Upper Extremities Edema: None (01/06/2017 13:31:Magi Camp, [facility]) Upper Extremities Edema Degree: None (01/06/2017 13:31:Magi Camp, [facility]) Facial Edema: None (01/06/2017 13:31:Magi Camp, [facility]) Partha's Sign Left Leg: Negative (01/06/2017 13:31:Magi Camp, [facility]) Partha's Sign Right Leg: Negative (01/06/2017 13:31:Magi Camp, [facility]) RESPIRATORY Respiratory Effort: Unlabored; Regular Rhythm; Equal Expansion (01/06/2017 13:31:Magi Camp, [facility]) Breath Sounds, Left: Clear and Equal (01/06/2017 13:31:Magi Camp, [facility]) Breath Sounds, Right: Clear and Equal (01/06/2017 13:31:Magi Camp, [facility]) Cough Productivity: None (01/06/2017 13:31:Magi Camp, [facility]) GASTROINTESTINAL Nausea/Vomiting: Denies (01/06/2017 13:31:Magi Camp, [facility]) Bowel Sounds: Normoactive; All Quadrants (01/06/2017 13:31:Magi Camp, [facility]) RUQ Epigastric Pain: Denies (01/06/2017 13:31:Magi Camp, [facility]) GENITOURINARY Bladder: Nondistended (01/06/2017 13:31:Magi Camp, [facility]) Frequency of Urination: No (01/06/2017 13:31:[facility]) Urination Burning: No (01/06/2017 13:31:[facility]) CVA Tenderness: No (01/06/2017 13:31:[facility]) Vaginal Bleeding: None (01/06/2017 13:31:[facility]) Vaginal Discharge Amount: Small (01/06/2017 13:31:[facility]) Vaginal Discharge Color: White (01/06/2017 13:31:[facility]) Vaginal Discharge Odor: Non-Odorous (01/06/2017 13:31:[facility]) Vaginal Discharge Character: Thick (01/06/2017 13:31:[facility]) INTEGUMENTARY Skin Color: Normal for Race (01/06/2017 13:31:[facility]) Skin Temperature: Warm (01/06/2017 13:31:[facility]) Skin Moisture: Dry (01/06/2017 13:31:[facility]) Surgical Scars: denies (01/06/2017 13:31:[facility]) Body Piercings/Tattoos: multiple tattoos and piercings (01/06/2017 13:31:[facility]) JESUS SKIN ASSESSMENT Jesus Scale Sensory Perception: No Impairment- Responds to verbal commands. Has no sensory deficit which would limit ability to feel or voice pain or discomfort (01/06/2017 13:31:SADIQ Espino) Jesus Scale Moisture: Rarely Moist- Skin is usually dry. Linen only requires changing at routine intervals (01/06/2017 13:31:SADIQ Espino) Jesus Scale Activity: Walks Frequently- Walks outside the room at least twice a day and inside room at least every 2 hours during the day. (01/06/2017 13:31:SADIQ Espino) Jesus Scale Mobility: No Limitations- Makes major and frequent changes in position without assistance (01/06/2017 13:31:SADIQ Espino) Jesus Scale Nutrition: Excellent- Eats most of every meal. Never refuses a meal. Usually eats a total of 4 or more servings of meat and dairy products. Occasionally eats between meals. Does not require supplementation (01/06/2017 13:31:SADIQ Espino) Jesus Scale Friction and Shear: No Apparent Problem- Moves in bed and in chair independently and has sufficient muscle strength to lift up completely during move. Maintains good position in bed or chair at all times (01/06/2017 13:31:SADIQ Espino) Jesus Scale Total: 23 (01/06/2017 13:31:QS system process) Jesus Scale Risk: No Risk of Pressure Ulcer Noted at this Time (01/06/2017 13:31:QS system process) SUPPORT Family Support: Family supportive (Annotations: family very supportive per pt, moving in with Grandmother) (01/06/2017 13:31:Magi Camp, [facility]) Emotional State: Calm/Relaxed (01/06/2017 13:31:Magi Camp, [facility]) SAFETY Call [place] Within Reach: Yes (01/06/2017 13:31:Magi Camp, [facility]) Side Rails Up: Yes (01/06/2017 13:31:Magi Camp, [facility]) Bed Wheels Locked: Yes (01/06/2017 13:31:Magi Camp, [facility]) Arm Bands Present: Yes (01/06/2017 13:31:Magi Camp, [facility]) FALL SCREEN Fall Risk History of Falling: (0) No (01/06/2017 13:31:Magi Camp, [facility]) Fall Risk Secondary Diagnosis: (0) No (01/06/2017 13:31:Magi Camp, [facility]) Fall Risk Ambulatory Aid: (0) None/Bedrest/Wheelchair/Nurse Assist (01/06/2017 13:31:SADIQ Espino) Fall Risk IV Therapy: (0) No (01/06/2017 13:31:SADIQ Espino) Fall Risk Gait: (0) Normal/Bedrest/Immobile (01/06/2017 13:31:SADIQ Espino) Fall Risk Mental Status: (0) Oriented to Own Ability (01/06/2017 13:31:SADIQ Espino) Fall Risk Score: 0 (01/06/2017 13:31:QS system process) Fall Risk Score Definition: No Risk: No action required (01/06/2017 13:31:QS system process) BABY A FHR Baseline Rate (bpm) Baby A: 140 (01/06/2017 13:45:SADIQ Espino) FHR Baseline Rate (bpm) Baby A: 135 (01/06/2017 13:30:SADIQ Espino) Variability Baby A: Moderate 6-25 bpm (01/06/2017 13:45:SADIQ Espino) Variability Baby A: Moderate 6-25 bpm (01/06/2017 13:30:Magi Ward [facility]NRodol[facility]) Accelerations Baby A: 15X15 (01/06/2017 13:45:SADIQ Espino) Accelerations Baby A: 15X15 (01/06/2017 13:30:SADIQ Espino) Decelerations Baby A: None (01/06/2017 13:45:SADIQ Espino) Decelerations Baby A: None (01/06/2017 13:30:SADIQ Espino)
--- NOTE | 2017-01-07 04:46 | L&D General Admission ---
General Admit Datetime Report Generated by CPN: 01/07/2017 04:45 INFORMATION Patient Age: 24 (09/21/2014 09:45:QS system process) EDC: 04/01/2017 00:00 (01/06/2017 13:15:SADIQ Espino) : 2 (01/06/2017 13:15:SADIQ Espino) Para: 1 (01/06/2017 13:15:SADIQ Espino) Term: 1 (01/06/2017 13:15:SADIQ Espino) : 0 (01/06/2017 13:15:SADIQ Espino) Spontaneous Abortions: 0 (01/06/2017 13:15:SADIQ Espino) Induced Abortions: 0 (01/06/2017 13:15:SADIQ Espino) Livin (01/06/2017 13:15:SADIQ Espino) Cesareans: 0 (01/06/2017 13:15:SADIQ Espino) VBACs: 0 (01/06/2017 13:15:SADIQ Espino) Ectopic: 0 (01/06/2017 13:15:[facility], [facility]) Multiple Births: 0 [facility]06[facility]2017 [facility] Baby, Number in Womb: 1 (01/06/2017 13:15:Magi Ward, [facility]) CARE Primary Strategic Marketing Manager[facility] (01/06/2017 13:15:Magi Ward, [facility]) Month of 1st Visit: July (01/06/2017 13:15:Magi Ward, [facility]) Adequate Care: Yes (01/06/2017 13:15:Magi Ward, [facility]) Prepregnancy Weight (lb): 130 (01/06/2017 13:15:Magi Ward [facility]) Prepregnancy Weight (kg): 59.1 (01/06/2017 13:15:QS system process) Height (in): 67 (01/06/2017 13:08:QS system process) ALLERGIES Medication Allergy: No (01/06/2017 13:15:Magi Ward SAD[facility]) Medication Allergies: No Known Drug Allergies (01/06/2017) (01/06/2017 13:08:QS system process) Medication Allergies: No Known Drug Allergies (10/18/2016) (10/18/2016 10:15:QS system process) Medication Allergies: etonogestrel/Hair Loss, Mood (08/10/2016) (08/10/2016 09:18:QS system process) Medication Allergies: etonogestrel/Hair Loss, Mood (08/08/2016) (08/08/2016 13:43:QS system process) Medication Allergies: etonogestrel/Hair Loss, Mood (07/16/2016) (07/16/2016 15:33:QS system process) Medication Allergies: Etonogestrel/Hair Loss, Mood (08/06/2015) (08/06/2015 15:21:QS system process) Medication Allergies: Etonogestrel/Hair Loss, Mood (05/30/2015) (05/30/2015 17:55:QS system process) Medication Allergies: No Known Allergies (05/30/2015) (05/30/2015 16:19:QS system process) Medication Allergies: No Known Allergies (09/21/2014) (09/21/2014 09:45:QS system process) Latex Allergy: No Latex Allergies (01/06/2017 13:15:SADIQ Espino) COMMUNICATION Primary Language: Chilean (01/06/2017 13:15:SADIQ Espino) Medical Tx Preferred Language: Chilean (01/06/2017 13:15:SADIQ Espino) Communication Barrier(s): None (01/06/2017 13:15:SADIQ Espino) DEMOGRAPHICS Address: [address] [place] [id number] (01/06/2017 12:51:QS system process) Address: [address] [place] [id number] (09/21/2014 09:45:QS system process) Zipcode: [id number] (01/06/2017 12:51:QS system process) Zipcode: [id number] (09/21/2014 09:45:QS system process) Home (07/16/2016 15:33:QS system process) Home (07/13/2016 16:09:QS system process) Home (08/06/2015 15:39:QS system process) Home (09/21/2014 09:45:QS system process) Work (08/06/2015 15:39:QS system process) Work (05/30/2015 17:55:QS system process) Work (09/21/2014 09:45:QS system process) N: [phone] (09/21/2014 09:45:QS system process) Next of Kin Name: MARY SHIPLEY (07/16/2016 15:33:QS system process) Next of Kin Name: DERRICK LORA (07/13/2016 16:09:QS system process) Next of Kin Name: JEYSON METZ (09/21/2014 09:45:QS system process) Next of Kin (07/16/2016 15:33:QS system process) Next of Kin (07/13/2016 16:09:QS system process) Next of Kin (09/21/2014 09:45:QS system process) Next of Kin Relationship: [place] (07/16/2016 15:33:QS system process) Next of Kin Relationship: [place] (09/21/2014 09:45:QS system process) Date of : 1990 (09/21/2014 09:45:QS system process) Marital Status: Single (09/21/2014 09:45:QS system process) Sex: Female (09/21/2014 09:45:QS system process) Occupation: Other (01/06/2017 13:15:SADIQ Espino) Occupation- Other : [employer] (01/06/2017 13:15:SADIQ Espino) Race: (09/21/2014 09:45:QS system process) Ethnicity: Non- or (09/21/2014 09:45:QS system process) Shinto: Pentecostal (09/21/2014 09:45:QS system process) Education: 12 (01/06/2017 13:15:SADIQ Espino) FOB Involved: Yes (01/06/2017 13:15:SADIQ Espino) Father of Baby Name: Derrick Gutierrez (01/06/2017 13:15:SADIQ Espino) DRUG AND ALCOHOL USE Alcohol: No (01/06/2017 13:15:SADIQ Espino) Cigarettes: Former Smoker. [id number] (01/06/2017 13:15:[facility]) Marijuana: Yes (01/06/2017 13:15:[facility]) Marijuana Use: 3 - 5 Times Per Week (01/06/2017 13:15:[facility]) Marijuana Previous Treatment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, on Subutex for opoid addiction (01/06/2017 13:15:[facility]) VACCINE HISTORY Influenza Vaccine: No (01/06/2017 13:15:[facility]) Pneumococcal Vaccine: No (01/06/2017 13:15:[facility]) Tetanus Vaccine: Uncertain (01/06/2017 13:15:[facility]) Tdap Vaccine: Uncertain (01/06/2017 13:15:[facility]) Hepatitis B Vaccine: Uncertain (01/06/2017 13:15:[facility]) Application Support Administrator: [facility] (01/06/2017 13:15:SADIQ Espino) Feeding Preference: Both (01/06/2017 13:15:SADIQ Espino) Circumcision: Yes (01/06/2017 13:15:SADIQ Espino) Classes Attended: No (01/06/2017 13:15:SADIQ Espino) Tubal Ligation: No (01/06/2017 13:15:SADIQ Espino) Tubal Authorization Signed: N/A (01/06/2017 13:15:SADIQ Espino) Consent: N/A (01/06/2017 13:15:SADIQ Espino) Consent Signed: N/A (01/06/2017 13:15:SADIQ Espino) Pain Management Plans: Epidural (01/06/2017 13:15:SADIQ Espino) Plans for Labor and Delivery: None (01/06/2017 13:15:SADIQ Espino) Support Person: Mary Weaks (01/06/2017 13:15:SADIQ Espino) Support Person Relationship: Mother (01/06/2017 13:15:SADIQ Espino) Cultural/Spritual Practice: No (01/06/2017 13:15:SADIQ Espino) Spir/Cult Dietary Needs: No (01/06/2017 13:15:SADIQ Espino) LIVING SITUATION/DISCHARGE PLAN Living Arrangements: House (01/06/2017 13:15:SAD[facility] Espino) Adequate Access to:: Electric; Heat; Refrigeration; Plumbing/Running water; Phone; Transportation (01/06/2017 13:15:SADIQ Espino) WIC Program: Yes (01/06/2017 13:15:[facility] Espino) Discharge Radio Adjuster Person: Linda Metz (01/06/2017 13:15:[facility] Espino) Person to Help after Discharge: Mary Shipley (01/06/2017 13:15:SAD[facility] Espino) Specify Current Resource Used: medicaid, food stamps, wic (01/06/2017 13:15:SADIQ Espino) Outside Agency/Rebar Bender: Yes (01/06/2017 13:15:SADIQ Espino) Specify Agency/ Rebar Bender: Torri Paul [facility] (01/06/2017 13:15:SADIQ Espino) Car Seat for Discharge: Yes (01/06/2017 13:15:SADIQ Espino) Agency/Agent Handling Adoption: Pt undecided considering adoption (01/06/2017 13:15:SADIQ Epsino) Pt Contact w/infant Post : N/A (01/06/2017 13:15:SADIQ Espino) LABS Blood Type: A Positive (01/06/2017 13:15:SADIQ Espino) Antibody Screen: negative (01/06/2017 13:15:SADIQ Espino) Hemoglobin: 13.8 (10/04/2016 12:15:QS system process) Hemoglobin: 13.4 (10/01/2016 13:50:QS system process) Hemoglobin: 12.8 (09/29/2016 02:54:QS system process) Hemoglobin: 15.1 (09/02/2016 09:59:QS system process) Hemoglobin: 13.9 (08/10/2016 09:55:QS system process) Hemoglobin: 14.9 (08/08/2016 16:42:QS system process) Hemoglobin: 14.6 (07/16/2016 16:05:QS system process) Hemoglobin: 13.9 (05/30/2015 17:05:QS system process) Hematocrit: 42.8 (10/04/2016 12:15:QS system process) Hematocrit: 41.0 (10/01/2016 13:50:QS system process) Hematocrit: 37.7 (09/29/2016 02:54:QS system process) Hematocrit: 43.6 (09/02/2016 09:59:QS system process) Hematocrit: 40.3 (08/10/2016 09:55:QS system process) Hematocrit: 43.0 (08/08/2016 16:42:QS system process) Hematocrit: 43.2 (07/16/2016 16:05:QS system process) Hematocrit: 42.1 (05/30/2015 17:05:QS system process) MCV: 92 (10/04/2016 12:15:QS system process) MCV: 92 (10/01/2016 13:50:QS system process) MCV: 90 (09/29/2016 02:54:QS system process) MCV: 91 (09/02/2016 09:59:QS system process) MCV: 91 (08/10/2016 09:55:QS system process) MCV: 90 (08/08/2016 16:42:QS system process) MCV: 91 (07/16/2016 16:05:QS system process) MCV: 92 (05/30/2015 17:05:QS system process) Group Beta Strep: unknown (01/06/2017 13:15:SADIQ Espino) RPR/VDRL: Nonreactive (01/06/2017 13:15:SADIQ Espino) HIV Results: negative (01/06/2017 13:15:Magi Ward RN) Hepatitis B: Negative (01/06/2017 13:15:SADIQ Espino) Rubella: Immune (01/06/2017 13:15:SADIQ Espino) OB/PREVIOUS HISTORY Previous Procedures: Ultrasound; NST (01/06/2017 13:15:Magi Ward RN) Current Procedures: Ultrasound; NST (01/06/2017 13:15:Magi Ward [facility]) History of Previous : No (01/06/2017 13:15:Magi Ward [facility]) History of Gestational Diabetes: No (01/06/2017 13:15:Magi Ward [facility]) History of PIH: No (01/06/2017 13:15:Magi Ward [facility]) History of Incompetent Cervix: No (01/06/2017 13:15:Magi Ward [facility]) History of Placenta Previa/Abrup: No (01/06/2017 13:15:Magi Ward [facility]) History of Macrosomia: Yes (01/06/2017 13:15:Magi Ward [facility]) History of IUGR: No (01/06/2017 13:15:Magi Ward [facility]) History of Hemorrhage: No (01/06/2017 13:15:Magi Ward [facility]) History of Loss/Stillborn: No (01/06/2017 13:15:Magi Ward [facility]) History of : No (01/06/2017 13:15:Magi Ward [facility]) History of D (Rh) Sensitization: No (01/06/2017 13:15:SADIQ Espino) History Recurrent Loss/Stillborn: No (01/06/2017 13:15:SADIQ Espino) History Depression/PP Depression: No (01/06/2017 13:15:SADIQ Espino) History of Uterine Anomaly/MICHELLE: No (01/06/2017 13:15:SADIQ Espino) History of Infertility: No (01/06/2017 13:15:SADIQ Espino) History of ART Treatment: No (01/06/2017 13:15:SADIQ Espino) History of MICHELLE: No (01/06/2017 13:15:SADIQ Espino) Comments Obstetrical History: G1 10lbs 11 oz G2 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, on Subutex for Percocet addiction (01/06/2017 13:15:SADIQ Espino) MEDICAL HISTORY Med Hx Diabetes: No (01/06/2017 13:15:SADIQ Espino) Med Hx Hypertension: No (01/06/2017 13:15:SADIQ Espino) Med Hx Heart Disease: No (01/06/2017 13:15:SADIQ Espino) Med Hx Autoimmune Disorder: No (01/06/2017 13:15:SADIQ Espino) Med Hx Kidney Disease/UTI: No (01/06/2017 13:15:SADIQ Espino) Med Hx Neurologic/Epilepsy: No (01/06/2017 13:15:SADIQ Espino) Med Hx Psychiatric Disorders: Yes (01/06/2017 13:15:SADIQ Espino) Med Hx Hepatitis/Liver Disease: No (01/06/2017 13:15:SADIQ Espino) Med Hx Varicosities/Phlebitis: No (01/06/2017 13:15:SADIQ Espino) Med Hx Thyroid Dysfunction: No (01/06/2017 13:15:SADIQ Espino) Med Hx Trauma/Violence: No (01/06/2017 13:15:SADIQ Espino) Med Hx Blood Transfusion: Yes (01/06/2017 13:15:SADIQ Espino) Med Hx Pulmonary (Asthma,TB): No (01/06/2017 13:15:SADIQ Espino) Med Hx Breast: No (01/06/2017 13:15:SADIQ Espino) Med Hx [employer] Surgery: No (01/06/2017 13:15:SADIQ Espino) Med Hx Hospitalization/Surgery: Yes (01/06/2017 13:15:SADIQ Espino) Med Hx Anesthetic Complications: No (01/06/2017 13:15:SADIQ Espino) Med Hx Abnormal Pap Smear: Yes (01/06/2017 13:15:SADIQ Espino) Other Medical Diseases: No (01/06/2017 13:15:SADIQ Espino) Med Hx Significant Family Hx: No (01/06/2017 13:15:SADIQ Espino) Details of Med/Surg Hx: hospitalized for childbirth, Current opioid addiction on subutex (01/06/2017 13:15:SADIQ Espino) INFECTIOUS HISTORY Inf Hx Gonorrhea: No (01/06/2017 13:15:SADIQ Espino) Inf Hx Chlamydia: Yes (01/06/2017 13:15:Magi Ward [facility]) Inf Hx Syphilis: No [facility]06[facility]2017 [facility] Inf Hx HIV/AIDS: No (01/06/2017 [facility] Inf Hx Human Papilloma Virus: No (01/06/2017 [facility] Inf Hx Pt/Partner Genital Herpes: No (01/06/2017 [facility] Inf Hx Tuberculosis/Exposure: No (01/06/2017 [facility] Inf Hx Hepatitis B,C: No (01/06/2017 13:15:[facility]) Inf Hx Rash or Viral Illness: No (01/06/2017 [facility] Details of Infectious Hx: h/o chlamydia (01/06/2017 13:[facility] GENETIC HISTORY Gen Hx Age >=35 at ASHANTI: No (01/06/2017 13:15:Magi Ward [facility]) Gen Hx Thalassemia: No (01/06/2017 [facility] Gen Hx Congenital Heart Defect: Unknown (01/06/2017 13:15:Magi Ward [facility]) Gen Hx Neural Tube Defect: No (01/06/2017 13:15:Magi Ward [facility]) Gen Hx Down's Syndrome: Unknown (01/06/2017 13:15:Magi Ward [facility]) Gen Hx Moses-Sachs: No (01/06/2017 13:15:Magi Ward [facility]) Gen Hx Monica: No (01/06/2017 13:15:SADIQ Espino) Gen Hx Familial Dysautonomia: No (01/06/2017 13:15:SADIQ Espino) Gen Hx Sickle Cell Disease/Trait: No (01/06/2017 13:15:SADIQ Espino) Gen Hx Hemophilia/Blood Disorder: No (01/06/2017 13:15:SADIQ Espino) Gen Hx Muscular Dystrophy: No (01/06/2017 13:15:SADIQ Espino) Gen Hx Cystic Fibrosis: No (01/06/2017 13:15:SADIQ Espino) Gen Hx Huntingtons Chorea: No (01/06/2017 13:15:SADIQ Espino) Gen Hx Mental Retardation/Autism: Yes (01/06/2017 13:15:SADIQ Espino) Gen Hx Tested for Fragile X: No (01/06/2017 13:15:SADIQ Espino) Gen Hx Other Inher/Chromosomal: No (01/06/2017 13:15:SADIQ Espino) Gen Hx Maternal Metabolic DO: No (01/06/2017 13:15:SADIQ Espino) Gen Hx Pt Father or FOB Defect: No (01/06/2017 13:15:SADIQ Espino) Gen Hx Other Genetic History: No (01/06/2017 13:15:SADIQ Espino) Gen Hx Drugs/Meds since LMP: No (01/06/2017 13:15:SADIQ Epsino) Details of Genetic History: dx with Down's syndrome and 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
--- NOTE | 2017-01-07 10:46 | L&D General Admission ---
General Admit Datetime Report Generated by CPN: 01/07/2017 10:45 INFORMATION Patient Age: 24 (09/21/2014 09:45:QS system process) EDC: 04/01/2017 00:00 (01/06/2017 13:15:SADIQ Espino) : 2 (01/06/2017 13:15:SADIQ Espino) Para: 1 (01/06/2017 13:15:SADIQ Espino) Term: 1 (01/06/2017 13:15:SADIQ Espino) : 0 (01/06/2017 13:15:SADIQ Espino) Spontaneous Abortions: 0 (01/06/2017 13:15:SADIQ Espino) Induced Abortions: 0 (01/06/2017 13:15:SADIQ Espino) Livin (01/06/2017 13:15:SADIQ Espino) Cesareans: 0 (01/06/2017 13:15:SADIQ Espino) VBACs: 0 (01/06/2017 13:15:SADIQ Espino) Ectopic: 0 (01/06/2017 13:15:[facility], [facility]) Multiple Births: 0 [facility]06[facility]2017 [facility] Baby, Number in Womb: 1 (01/06/2017 13:15:Magi Ward, [facility]) CARE Primary Contact Center Rep[facility] (01/06/2017 13:15:Magi Ward, [facility]) Month of 1st Visit: July (01/06/2017 13:15:aMgi Ward, [facility]) Adequate Care: Yes (01/06/2017 13:15:Magi Ward, [facility]) Prepregnancy Weight (lb): 130 (01/06/2017 13:15:Magi Ward [facility]) Prepregnancy Weight (kg): 59.1 (01/06/2017 13:15:QS system process) Height (in): 67 (01/06/2017 13:08:QS system process) ALLERGIES Medication Allergy: No (01/06/2017 13:15:Magi Ward SADIQ) Medication Allergies: No Known Drug Allergies (01/06/2017) (01/06/2017 13:08:QS system process) Medication Allergies: No Known Drug Allergies (10/18/2016) (10/18/2016 10:15:QS system process) Medication Allergies: etonogestrel/Hair Loss, Mood (08/10/2016) (08/10/2016 09:18:QS system process) Medication Allergies: etonogestrel/Hair Loss, Mood (08/08/2016) (08/08/2016 13:43:QS system process) Medication Allergies: etonogestrel/Hair Loss, Mood (07/16/2016) (07/16/2016 15:33:QS system process) Medication Allergies: Etonogestrel/Hair Loss, Mood (08/06/2015) (08/06/2015 15:21:QS system process) Medication Allergies: Etonogestrel/Hair Loss, Mood (05/30/2015) (05/30/2015 17:55:QS system process) Medication Allergies: No Known Allergies (05/30/2015) (05/30/2015 16:19:QS system process) Medication Allergies: No Known Allergies (09/21/2014) (09/21/2014 09:45:QS system process) Latex Allergy: No Latex Allergies (01/06/2017 13:15:SADIQ Espino) COMMUNICATION Primary Language: Turkmen (01/06/2017 13:15:SADIQ Espino) Medical Tx Preferred Language: Turkmen (01/06/2017 13:15:SADIQ Espino) Communication Barrier(s): None (01/06/2017 13:15:SADIQ Espino) DEMOGRAPHICS Address: [address] [place] [id number] (01/06/2017 12:51:QS system process) Address: [address] [place] [id number] (09/21/2014 09:45:QS system process) Zipcode: [id number] (01/06/2017 12:51:QS system process) Zipcode: [phone] (09/21/2014 09:45:QS system process) Home (07/16/2016 15:33:QS system process) Home (07/13/2016 16:09:QS system process) Home (08/06/2015 15:39:QS system process) Home (09/21/2014 09:45:QS system process) Work (08/06/2015 15:39:QS system process) Work (05/30/2015 17:55:QS system process) Work (09/21/2014 09:45:QS system process) N: [id number] (09/21/2014 09:45:QS system process) Next of Kin Name: MARY SHIPLEY (07/16/2016 15:33:QS system process) Next of Kin Name: DERRICK LORA (07/13/2016 16:09:QS system process) Next of Kin Name: JEYSON METZ (09/21/2014 09:45:QS system process) Next of Kin (07/16/2016 15:33:QS system process) Next of Kin (07/13/2016 16:09:QS system process) Next of Kin (09/21/2014 09:45:QS system process) Next of Kin Relationship: MO (07/16/2016 15:33:QS system process) Next of Kin Relationship: [place] (09/21/2014 09:45:QS system process) Date of : 1990 (09/21/2014 09:45:QS system process) Marital Status: Single (09/21/2014 09:45:QS system process) Sex: Female (09/21/2014 09:45:QS system process) Occupation: Other (01/06/2017 13:15:SADIQ Espino) Occupation- Other : [employer] (01/06/2017 13:15:SADIQ Espino) Race: (09/21/2014 09:45:QS system process) Ethnicity: Non- or (09/21/2014 09:45:QS system process) Evangelical: Gnosticism (09/21/2014 09:45:QS system process) Education: 12 (01/06/2017 13:15:SADIQ Espino) FOB Involved: Yes (01/06/2017 13:15:SADIQ Espino) Father of Baby Name: Derrick Gutierrez (01/06/2017 13:15:SADIQ Espino) DRUG AND ALCOHOL USE Alcohol: No (01/06/2017 13:15:SADIQ Espino) Cigarettes: Former Smoker. 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, on Subutex for opoid addiction (01/06/2017 13:15:[facility]) VACCINE HISTORY Influenza Vaccine: No (01/06/2017 13:15:[facility]) Pneumococcal Vaccine: No (01/06/2017 13:15:[facility]) Tetanus Vaccine: Uncertain (01/06/2017 13:15:[facility]) Tdap Vaccine: Uncertain (01/06/2017 13:15:[facility]) Hepatitis B Vaccine: Uncertain (01/06/2017 13:15:[facility]) Report Manager: [facility] (01/06/2017 13:15:SADIQ Espino) Feeding Preference: Both (01/06/2017 13:15:SADIQ Espino) Circumcision: Yes (01/06/2017 13:15:SADIQ Espino) Classes Attended: No (01/06/2017 13:15:SADIQ Espino) Tubal Ligation: No (01/06/2017 13:15:SADIQ Espino) Tubal Authorization Signed: N/A (01/06/2017 13:15:SADIQ Espino) Consent: N/A (01/06/2017 13:15:SADIQ Espino) Consent Signed: N/A (01/06/2017 13:15:SADIQ Espino) Pain Management Plans: Epidural (01/06/2017 13:15:SADIQ Espino) Plans for Labor and Delivery: None (01/06/2017 13:15:SADIQ Espino) Support Person: Mary Weaks (01/06/2017 13:15:SADIQ Espino) Support Person Relationship: Mother (01/06/2017 13:15:SADIQ Espino) Cultural/Spritual Practice: No (01/06/2017 13:15:SADIQ Espino) Spir/Cult Dietary Needs: No (01/06/2017 13:15:SADIQ Espino) LIVING SITUATION/DISCHARGE PLAN Living Arrangements: House (01/06/2017 13:15:SADIQ Espino) Adequate Access to:: Electric; Heat; Refrigeration; Plumbing/Running water; Phone; Transportation (01/06/2017 13:15:SADIQ Espino) WIC Program: Yes (01/06/2017 13:15:SADIQ Espino) Discharge District Plant Supervisor Person: Linda Metz (01/06/2017 13:15:SADIQ Espino) Person to Help after Discharge: Mary Shipley (01/06/2017 13:15:SADIQ Espino) Specify Current Resource Used: medicaid, food stamps, wic (01/06/2017 13:15:SADIQ Espino) Outside Agency/[place]ander: Yes (01/06/2017 13:15:SADIQ Espino) Specify Agency/ [place]ander: Torri Paul [facility] (01/06/2017 13:15:SADIQ Espino) Car Seat for Discharge: Yes (01/06/2017 13:15:SADIQ Espino) Agency/Agent Handling Adoption: Pt undecided considering adoption (01/06/2017 13:15:SADIQ Espino) Pt Contact w/infant Post : N/A (01/06/2017 13:15:SADIQ Espino) LABS Blood Type: A Positive (01/06/2017 13:15:SDAIQ Espino) Antibody Screen: negative (01/06/2017 13:15:SADIQ Espino) Hemoglobin: 13.8 (10/04/2016 12:15:QS system process) Hemoglobin: 13.4 (10/01/2016 13:50:QS system process) Hemoglobin: 12.8 (09/29/2016 02:54:QS system process) Hemoglobin: 15.1 (09/02/2016 09:59:QS system process) Hemoglobin: 13.9 (08/10/2016 09:55:QS system process) Hemoglobin: 14.9 (08/08/2016 16:42:QS system process) Hemoglobin: 14.6 (07/16/2016 16:05:QS system process) Hemoglobin: 13.9 (05/30/2015 17:05:QS system process) Hematocrit: 42.8 (10/04/2016 12:15:QS system process) Hematocrit: 41.0 (10/01/2016 13:50:QS system process) Hematocrit: 37.7 (09/29/2016 02:54:QS system process) Hematocrit: 43.6 (09/02/2016 09:59:QS system process) Hematocrit: 40.3 (08/10/2016 09:55:QS system process) Hematocrit: 43.0 (08/08/2016 16:42:QS system process) Hematocrit: 43.2 (07/16/2016 16:05:QS system process) Hematocrit: 42.1 (05/30/2015 17:05:QS system process) MCV: 92 (10/04/2016 12:15:QS system process) MCV: 92 (10/01/2016 13:50:QS system process) MCV: 90 (09/29/2016 02:54:QS system process) MCV: 91 (09/02/2016 09:59:QS system process) MCV: 91 (08/10/2016 09:55:QS system process) MCV: 90 (08/08/2016 16:42:QS system process) MCV: 91 (07/16/2016 16:05:QS system process) MCV: 92 (05/30/2015 17:05:QS system process) Group Beta Strep: unknown (01/06/2017 13:15:SADIQ Espino) RPR/VDRL: Nonreactive (01/06/2017 13:15:SADIQ Espino) HIV Results: negative (01/06/2017 13:15:Magi Ward RN) Hepatitis B: Negative (01/06/2017 13:15:SADIQ Espino) Rubella: Immune (01/06/2017 13:15:SADIQ Espino) OB/PREVIOUS HISTORY Previous Procedures: Ultrasound; NST (01/06/2017 13:15:Magi Ward RN) Current Procedures: Ultrasound; NST (01/06/2017 13:15:Magi Ward [facility]) History of Previous : No (01/06/2017 13:15:Magi Ward [facility]) History of Gestational Diabetes: No (01/06/2017 13:15:Magi Ward [facility]) History of PIH: No (01/06/2017 13:15:Magi Ward [facility]) History of Incompetent Cervix: No (01/06/2017 13:15:Magi Ward [facility]) History of Placenta Previa/Abrup: No (01/06/2017 13:15:Magi Ward [facility]) History of Macrosomia: Yes (01/06/2017 13:15:Magi Ward [facility]) History of IUGR: No (01/06/2017 13:15:Magi Ward [facility]) History of Hemorrhage: No (01/06/2017 13:15:Magi Ward [facility]) History of Loss/Stillborn: No (01/06/2017 13:15:Magi Ward [facility]) History of : No (01/06/2017 13:15:Magi Ward [facility]) History of D (Rh) Sensitization: No (01/06/2017 13:15:SADIQ Espino) History Recurrent Loss/Stillborn: No (01/06/2017 13:15:SADIQ Espino) History Depression/PP Depression: No (01/06/2017 13:15:SADIQ Espino) History of Uterine Anomaly/MICHELLE: No (01/06/2017 13:15:SADIQ Espino) History of Infertility: No (01/06/2017 13:15:SADIQ Espino) History of ART Treatment: No (01/06/2017 13:15:SADIQ Espino) History of MICHELLE: No (01/06/2017 13:15:SADIQ Espino) Comments Obstetrical History: G1 10lbs 11 oz G2 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, on Subutex for Percocet addiction (01/06/2017 13:15:SADIQ Espino) MEDICAL HISTORY Med Hx Diabetes: No (01/06/2017 13:15:SADIQ Espino) Med Hx Hypertension: No (01/06/2017 13:15:SADIQ Espino) Med Hx Heart Disease: No (01/06/2017 13:15:SADIQ Espino) Med Hx Autoimmune Disorder: No (01/06/2017 13:15:SADIQ Espino) Med Hx Kidney Disease/UTI: No (01/06/2017 13:15:SADIQ Espion) Med Hx Neurologic/Epilepsy: No (01/06/2017 13:15:SADIQ Espino) Med Hx Psychiatric Disorders: Yes (01/06/2017 13:15:SADIQ Espino) Med Hx Hepatitis/Liver Disease: No (01/06/2017 13:15:SADIQ Espino) Med Hx Varicosities/Phlebitis: No (01/06/2017 13:15:SADIQ Espino) Med Hx Thyroid Dysfunction: No (01/06/2017 13:15:SADIQ Espino) Med Hx Trauma/Violence: No (01/06/2017 13:15:SADIQ Espino) Med Hx Blood Transfusion: Yes (01/06/2017 13:15:SADIQ Espino) Med Hx Pulmonary (Asthma,TB): No (01/06/2017 13:15:SADIQ Espino) Med Hx Breast: No (01/06/2017 13:15:SADIQ Espino) Med Hx METAL FABRICATOR Surgery: No (01/06/2017 13:15:SADIQ Espino) Med Hx Hospitalization/Surgery: Yes (01/06/2017 13:15:SADIQ Espino) Med Hx Anesthetic Complications: No (01/06/2017 13:15:SADIQ Espino) Med Hx Abnormal Pap Smear: Yes (01/06/2017 13:15:SADIQ Espino) Other Medical Diseases: No (01/06/2017 13:15:SADIQ Espino) Med Hx Significant Family Hx: No (01/06/2017 13:15:SADIQ Espino) Details of Med/Surg Hx: hospitalized for childbirth, Current opioid addiction on subutex (01/06/2017 13:15:SADIQ Espino) INFECTIOUS HISTORY Inf Hx Gonorrhea: No (01/06/2017 13:15:SADIQ Espino) Inf Hx Chlamydia: Yes (01/06/2017 13:15:Magi Ward [facility]) Inf Hx Syphilis: No [facility]06[facility]2017 [facility] Inf Hx HIV/AIDS: No (01/06/2017 [facility] Inf Hx Human Papilloma Virus: No (01/06/2017 [facility] Inf Hx Pt/Partner Genital Herpes: No (01/06/2017 [facility] Inf Hx Tuberculosis/Exposure: No (01/06/2017 [facility] Inf Hx Hepatitis B,C: No (01/06/2017 13:15:[facility]) Inf Hx Rash or Viral Illness: No (01/06/2017 [facility] Details of Infectious Hx: h/o chlamydia (01/06/2017 13:[facility] GENETIC HISTORY Gen Hx Age >=35 at ASHANTI: No (01/06/2017 13:15:Magi Ward [facility]) Gen Hx Thalassemia: No ([facility]/06/2017 [facility] Gen Hx Congenital Heart Defect: Unknown (01/06/2017 13:15:Magi Ward [facility]) Gen Hx Neural Tube Defect: No (01/06/2017 13:15:Magi Ward [facility]) Gen Hx Down's Syndrome: Unknown (01/06/2017 13:15:Magi Ward [facility]) Gen Hx Moses-Sachs: No (01/06/2017 13:15:Magi Ward [facility]) Gen Hx Monica: No (01/06/2017 13:15:SADIQ Espino) Gen Hx Familial Dysautonomia: No (01/06/2017 13:15:SADIQ Espino) Gen Hx Sickle Cell Disease/Trait: No (01/06/2017 13:15:SADIQ Espino) Gen Hx Hemophilia/Blood Disorder: No (01/06/2017 13:15:SADIQ Espino) Gen Hx Muscular Dystrophy: No (01/06/2017 13:15:SADIQ Espino) Gen Hx Cystic Fibrosis: No (01/06/2017 13:15:SADIQ Espino) Gen Hx Huntingtons Chorea: No (01/06/2017 13:15:SADIQ Espino) Gen Hx Mental Retardation/Autism: Yes (01/06/2017 13:15:SADIQ Espino) Gen Hx Tested for Fragile X: No (01/06/2017 13:15:SADIQ Espino) Gen Hx Other Inher/Chromosomal: No (01/06/2017 13:15:SADIQ Espino) Gen Hx Maternal Metabolic DO: No (01/06/2017 13:15:SADIQ Espino) Gen Hx Pt Father or FOB Defect: No (01/06/2017 13:15:SADIQ Espino) Gen Hx Other Genetic History: No (01/06/2017 13:15:SADIQ Espino) Gen Hx Drugs/Meds since LMP: No (01/06/2017 13:15:SADIQ Espino) Details of Genetic History: dx with Down's syndrome and 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
--- NOTE | 2017-01-07 10:46 | L&D Discharge Summary ---
OB Discharge Summary Datetime Report Generated by CPN: 01/07/2017 10:45 DISCHARGE DIAGNOSIS Diagnosis/Symptoms: Round Ligament Syndrome Diagnoses/Symptoms Other: iup 27+6 Gestation: 27.6 Number of Babies in Womb: 1 Parity: 1 DIET/ACTIVITY/RESTRICTIONS Diet: Regular Activity: Normal Activity TEACHING/INSTRUCTIONS/REFERRALS Instructions Given To: patient and FOB Instructions Understood: Patient Verbalized Understanding; Support Person Verbalized Understanding Referrals: None Educational Materials- Other: care notes reviewed and signed for Round Ligament pain DISCHARGE INFORMATION Discharged AMA: No Discharge Date/Time: 01/06/2017 14:11 Discharged To: Home Discharge Provider Name: Varun Bennett Accompanied By: FOB Discharge Method: Ambulatory Condition: Stable FOLLOW UP INFORMATION Follow Up With: [facility] Follow Up On: As Scheduled Follow Up Phone Number: [facility] - Comments: Educated to increase po intake, frequent small meals, rest . Return for worsening symptoms GENERAL INSTR-CALL PROVIDER IF: Contractions: Contractions or cramps become more frequent than 8 in one hour or 4 in 20 minutes Pressure: Pressure in your vagina or lower abdomen that may feel like the baby is pushing down Period Like Cramps: Period-like cramps or low dull backache that may come and go Gush of Fluid/Blood: Gush of fluid or blood from your vagina (it is normal to have spotting after vaginal exam or intercourse)
--- NOTE | 2017-01-07 10:46 | L&D Admission Assessment ---
LD ADM ASMT Datetime Report Generated by CPN: 01/07/2017 10:45 PATIENT ASSESSMENT Assessment Type: Triage (01/06/2017 13:31:Magi Jerome, [facility]) WEIGHT Weight (lb): 156 (01/06/2017 13:08:QS system process) Weight (kg): 70.9 (01/06/2017 13:08:QS system process) Total Wt Gain (lb): 26 (01/06/2017 13:15:QS system process) Wt Gain (kg): 11.9 (01/06/2017 13:15:QS system process) PAIN Pain Scale: 2 (01/06/2017 13:31:Magi Camp, [facility]) Pain Presence: Intermittent (01/06/2017 13:31:Magi Camp, [facility]) Pain Type: Dull (01/06/2017 13:31:Magi Camp, [facility]) Pain Location: Head (01/06/2017 13:31:Magi Camp, [facility]) Pain Goal: 2 (01/06/2017 13:31:Magi Camp, [facility]) Pain Related to Contraction: No (01/06/2017 13:31:Magi Camp, [facility]) Pain Comments: no apparent distress noted (01/06/2017 13:31:Magi Camp, [facility]) CONTRACTIONS Frequency (min): none (01/06/2017 14:00:Magi Camp, [facility]) Frequency (min): none (01/06/2017 13:45:Magi Camp, [facility]) Frequency (min): none (01/06/2017 13:30:Magi Camp, [facility]) Resting Tone [place]: Relaxed (01/06/2017 14:00:SADIQ Espino) Resting Tone [place]: Relaxed (01/06/2017 13:45:Magi Ward [facility]) Resting Tone [place]: Relaxed (01/06/2017 13:30:Magi Ward, [facility]) VAGINAL EXAM Membranes Status: Intact (01/06/2017 13:31:SADIQ Espino) NEURO Level of Consciousness: Fully Conscious (01/06/2017 13:31:SADIQ Espino) DTR's/Clonus: DTRs 2+; No Clonus (01/06/2017 13:31:SADIQ Espino) Headache: Localized; Unilateral (Annotations: states headache started when she took Subutex on empty stomach today ) (01/06/2017 13:31:SADIQ Espino) Dizziness: No (01/06/2017 13:31:SADIQ Espino) Blurred Vision: No (01/06/2017 13:31:SADIQ Espino) Extremity Numbness/Tingling : None (01/06/2017 13:31:Magi Camp, [facility]) Extremity Movement: Full Range of Motion (01/06/2017 13:31:Magi Camp, [facility]) CARDIOVASCULAR Heart Rhythm: Regular (01/06/2017 13:31:Magi Camp, [facility]) Nailbeds: [place] (01/06/2017 13:31:Magi Camp, [facility]) Capillary Refill: Less than 3 Seconds (01/06/2017 13:31:Magi Camp, [facility]) Lower Extremities Edema: Bilateral Lower Extremities (01/06/2017 13:31:Magi Camp, [facility]) Lower Extremities Edema Degree: 1+ (01/06/2017 13:31:Magi Camp, [facility]) Upper Extremities Edema: None (01/06/2017 13:31:Magi Camp, [facility]) Upper Extremities Edema Degree: None (01/06/2017 13:31:Magi Camp, [facility]) Facial Edema: None (01/06/2017 13:31:Magi Camp, [facility]) Partha's Sign Left Leg: Negative (01/06/2017 13:31:Magi Camp, [facility]) Partha's Sign Right Leg: Negative (01/06/2017 13:31:Magi Camp, [facility]) RESPIRATORY Respiratory Effort: Unlabored; Regular Rhythm; Equal Expansion (01/06/2017 13:31:Magi Camp, [facility]) Breath Sounds, Left: Clear and Equal (01/06/2017 13:31:Magi Camp, [facility]) Breath Sounds, Right: Clear and Equal (01/06/2017 13:31:Magi Camp, [facility]) Cough Productivity: None (01/06/2017 13:31:Magi Camp, [facility]) GASTROINTESTINAL Nausea/Vomiting: Denies (01/06/2017 13:31:Magi Camp, [facility]) Bowel Sounds: Normoactive; All Quadrants (01/06/2017 13:31:Magi Camp, [facility]) RUQ Epigastric Pain: Denies (01/06/2017 13:31:Magi Camp, [facility]) GENITOURINARY Bladder: Nondistended (01/06/2017 13:31:Magi Camp, [facility]) Frequency of Urination: No (01/06/2017 13:31:[facility]) Urination Burning: No (01/06/2017 13:31:[facility]) CVA Tenderness: No (01/06/2017 13:31:[facility]) Vaginal Bleeding: None (01/06/2017 13:31:[facility]) Vaginal Discharge Amount: Small (01/06/2017 13:31:[facility]) Vaginal Discharge Color: White (01/06/2017 13:31:[facility]) Vaginal Discharge Odor: Non-Odorous (01/06/2017 13:31:[facility]) Vaginal Discharge Character: Thick (01/06/2017 13:31:[facility]) INTEGUMENTARY Skin Color: Normal for Race (01/06/2017 13:31:[facility]) Skin Temperature: Warm (01/06/2017 13:31:[facility]) Skin Moisture: Dry (01/06/2017 13:31:[facility]) Surgical Scars: denies (01/06/2017 13:31:[facility]) Body Piercings/Tattoos: multiple tattoos and piercings (01/06/2017 13:31:[facility]) JESUS SKIN ASSESSMENT Jesus Scale Sensory Perception: No Impairment- Responds to verbal commands. Has no sensory deficit which would limit ability to feel or voice pain or discomfort (01/06/2017 13:31:SADIQ Espino) Jesus Scale Moisture: Rarely Moist- Skin is usually dry. Linen only requires changing at routine intervals (01/06/2017 13:31:SADIQ Espino) Jesus Scale Activity: Walks Frequently- Walks outside the room at least twice a day and inside room at least every 2 hours during the day. (01/06/2017 13:31:SADIQ Espino) Jessu Scale Mobility: No Limitations- Makes major and frequent changes in position without assistance (01/06/2017 13:31:SADIQ Espino) Jesus Scale Nutrition: Excellent- Eats most of every meal. Never refuses a meal. Usually eats a total of 4 or more servings of meat and dairy products. Occasionally eats between meals. Does not require supplementation (01/06/2017 13:31:SADIQ Espino) Jesus Scale Friction and Shear: No Apparent Problem- Moves in bed and in chair independently and has sufficient muscle strength to lift up completely during move. Maintains good position in bed or chair at all times (01/06/2017 13:31:SADIQ Espino) Jesus Scale Total: 23 (01/06/2017 13:31:QS system process) Jesus Scale Risk: No Risk of Pressure Ulcer Noted at this Time (01/06/2017 13:31:QS system process) SUPPORT Family Support: Family supportive (Annotations: family very supportive per pt, moving in with Grandmother) (01/06/2017 13:31:Magi Camp, [facility]) Emotional State: Calm/Relaxed (01/06/2017 13:31:Magi Camp, [facility]) SAFETY Call [place] Within Reach: Yes (01/06/2017 13:31:Magi Camp, [facility]) Side Rails Up: Yes (01/06/2017 13:31:Magi Camp, [facility]) Bed Wheels Locked: Yes (01/06/2017 13:31:Magi Camp, [facility]) Arm Bands Present: Yes (01/06/2017 13:31:Magi Camp, [facility]) FALL SCREEN Fall Risk History of Falling: (0) No (01/06/2017 13:31:Magi Camp, [facility]) Fall Risk Secondary Diagnosis: (0) No (01/06/2017 13:31:Magi Camp, [facility]) Fall Risk Ambulatory Aid: (0) None/Bedrest/Wheelchair/Nurse Assist (01/06/2017 13:31:SADIQ Espino) Fall Risk IV Therapy: (0) No (01/06/2017 13:31:SADIQ Espino) Fall Risk Gait: (0) Normal/Bedrest/Immobile (01/06/2017 13:31:SADIQ Espino) Fall Risk Mental Status: (0) Oriented to Own Ability (01/06/2017 13:31:SADIQ Espino) Fall Risk Score: 0 (01/06/2017 13:31:QS system process) Fall Risk Score Definition: No Risk: No action required (01/06/2017 13:31:QS system process) BABY A FHR Baseline Rate (bpm) Baby A: 140 (01/06/2017 13:45:SADIQ Espino) FHR Baseline Rate (bpm) Baby A: 135 (01/06/2017 13:30:SADIQ Espino) Variability Baby A: Moderate 6-25 bpm (01/06/2017 13:45:SADIQ Espino) Variability Baby A: Moderate 6-25 bpm (01/06/2017 13:30:Magi Ward RNRodolfo) Accelerations Baby A: 15X15 (01/06/2017 13:45:SADIQ Espino) Accelerations Baby A: 15X15 (01/06/2017 13:30:SADIQ Espino) Decelerations Baby A: None (01/06/2017 13:45:SADIQ Espino) Decelerations Baby A: None (01/06/2017 13:30:SADIQ Espino)
--- NOTE | 2017-01-07 10:46 | L&D Current Admission ---
Current Admit Datetime Report Generated by CPN: 01/07/2017 10:45 ADMISSION INFORMATION Chief Complaint: Other (Annotations: lower left quad pain) (01/06/2017 13:31:Magi Camp, RNC)
--- NOTE | 2017-01-07 10:46 | Antepartum Discharge Summary ---
Antepartum DC Datetime Report Generated by CPN: 01/07/2017 10:45 DIET/ACTIVITY/RESTRICTIONS Diet: Regular (01/06/2017 16:28:[place], [facility]) Activity: Normal Activity (01/06/2017 16:28:[place], [facility]) TEACHING/INSTRUCTIONS/REFERRALS Instructions Given To: patient and FOB (01/06/2017 16:28:[place], [facility]) Instructions Understood: Patient Verbalized Understanding; Support Person Verbalized Understanding (01/06/2017 16:28:[place], [facility]) Referrals: None (01/06/2017 16:28:[place], [facility]) Educational Materials- Other: care notes reviewed and signed for Round Ligament pain (01/06/2017 16:28:[place], [facility]) DISCHARGE INFORMATION Discharged AMA: No (01/06/2017 16:28:[place], [facility]) Discharge Date/Time: 01/06/2017 14:11 (01/06/2017 16:28:[place], [facility]) Discharged To: Home (01/06/2017 16:28:[place], [place]) Discharge Provider Name: Varun Bennett (01/06/2017 16:28:[place], [place]) Accompanied By: FOB (01/06/2017 16:28:[place], [facility]) Discharge Method: Ambulatory (01/06/2017 16:28:[place], [facility]) Condition: Stable (01/06/2017 16:28:[place], [facility]) FOLLOW UP INFORMATION Follow Up With: [facility] (01/06/2017 16:28:SADIQ Espino) Follow Up On: As Scheduled (01/06/2017 16:28:SADIQ Espino) Follow Up Phone Number: [facility] - (01/06/2017 16:28:Magi Ward Rodolfo) Comments: Educated to increase po intake, frequent small meals, rest . Return for worsening symptoms (01/06/2017 16:28:[facility]agi Ward [facility]) GENERAL INSTR-CALL PROVIDER IF: Contractions: Contractions or cramps become more frequent than 8 in one hour or 4 in 20 minutes (01/06/2017 16:28:Magi Ward [facility]) Pressure: Pressure in your vagina or lower abdomen that may feel like the baby is pushing down (01/06/2017 16:28:Magi Ward [facility]) Period Like Cramps: Period-like cramps or low dull backache that may come and go (01/06/2017 16:28:Magi Ward [facility]) Gush of Fluid/Blood: Gush of fluid or blood from your vagina (it is normal to have spotting after vaginal exam or intercourse) (01/06/2017 16:28:Magi Ward [facility]) ADDITIONAL INSTRUCTIONS N/V Frequent Meals: Eat small frequent meals (01/06/2017 16:28:SADIQ Espino) Travel Hydration: Drink plenty of water, low sodium and noncaffeinated drinks (01/06/2017 16:28:SADIQ Espino) Travel Medications: DO NOT take any medication that is not approved by your physician first (01/06/2017 16:28:SADIQ Espino)
--- NOTE | 2017-01-07 16:46 | L&D Discharge Summary ---
OB Discharge Summary Datetime Report Generated by CPN: 01/07/2017 16:45 DISCHARGE DIAGNOSIS Diagnosis/Symptoms: Round Ligament Syndrome Diagnoses/Symptoms Other: iup 27+6 Gestation: 27.6 Number of Babies in Womb: 1 Parity: 1 DIET/ACTIVITY/RESTRICTIONS Diet: Regular Activity: Normal Activity TEACHING/INSTRUCTIONS/REFERRALS Instructions Given To: patient and FOB Instructions Understood: Patient Verbalized Understanding; Support Person Verbalized Understanding Referrals: None Educational Materials- Other: care notes reviewed and signed for Round Ligament pain DISCHARGE INFORMATION Discharged AMA: No Discharge Date/Time: 01/06/2017 14:11 Discharged To: Home Discharge Provider Name: Varun Bennett Accompanied By: FOB Discharge Method: Ambulatory Condition: Stable FOLLOW UP INFORMATION Follow Up With: [facility] Follow Up On: As Scheduled Follow Up Phone Number: [facility] - Comments: Educated to increase po intake, frequent small meals, rest . Return for worsening symptoms GENERAL INSTR-CALL PROVIDER IF: Contractions: Contractions or cramps become more frequent than 8 in one hour or 4 in 20 minutes Pressure: Pressure in your vagina or lower abdomen that may feel like the baby is pushing down Period Like Cramps: Period-like cramps or low dull backache that may come and go Gush of Fluid/Blood: Gush of fluid or blood from your vagina (it is normal to have spotting after vaginal exam or intercourse)
--- NOTE | 2017-01-07 16:46 | L&D General Admission ---
General Admit Datetime Report Generated by CPN: 01/07/2017 16:45 Prepregnancy Weight (kg): 59.1 (01/06/2017 13:15: system process) Blood Type: A Positive (01/06/2017 13:15:SADIQ Espino) Antibody Screen: negative (01/06/2017 13:15:SADIQ Espino) Group Beta Strep: unknown (01/06/2017 13:15:SADIQ Espino) RPR/VDRL: Nonreactive (01/06/2017 13:15:SADIQ Espino) HIV Results: negative (01/06/2017 13:15:SADIQ Espino) Hepatitis B: Negative (01/06/2017 13:15:SADIQ Espino) Rubella: Immune (01/06/2017 13:15:SADIQ Espino)
--- NOTE | 2017-01-07 22:45 | L&D Discharge Summary ---
OB Discharge Summary Datetime Report Generated by CPN: 01/07/2017 22:45 DISCHARGE DIAGNOSIS Diagnosis/Symptoms: Round Ligament Syndrome Diagnoses/Symptoms Other: iup 27+6 Gestation: 27.6 Number of Babies in Womb: 1 Parity: 1 DIET/ACTIVITY/RESTRICTIONS Diet: Regular Activity: Normal Activity TEACHING/INSTRUCTIONS/REFERRALS Instructions Given To: patient and FOB Instructions Understood: Patient Verbalized Understanding; Support Person Verbalized Understanding Referrals: None Educational Materials- Other: care notes reviewed and signed for Round Ligament pain DISCHARGE INFORMATION Discharged AMA: No Discharge Date/Time: 01/06/2017 14:11 Discharged To: Home Discharge Provider Name: Varun Bennett Accompanied By: FOB Discharge Method: Ambulatory Condition: Stable FOLLOW UP INFORMATION Follow Up With: [facility] Follow Up On: As Scheduled Follow Up Phone Number: [facility] - Comments: Educated to increase po intake, frequent small meals, rest . Return for worsening symptoms GENERAL INSTR-CALL PROVIDER IF: Contractions: Contractions or cramps become more frequent than 8 in one hour or 4 in 20 minutes Pressure: Pressure in your vagina or lower abdomen that may feel like the baby is pushing down Period Like Cramps: Period-like cramps or low dull backache that may come and go Gush of Fluid/Blood: Gush of fluid or blood from your vagina (it is normal to have spotting after vaginal exam or intercourse)
--- NOTE | 2017-01-08 04:45 | L&D Discharge Summary ---
OB Discharge Summary Datetime Report Generated by CPN: 01/08/2017 04:45 DISCHARGE DIAGNOSIS Diagnosis/Symptoms: Round Ligament Syndrome Diagnoses/Symptoms Other: iup 27+6 Gestation: 27.6 Number of Babies in Womb: 1 Parity: 1 DIET/ACTIVITY/RESTRICTIONS Diet: Regular Activity: Normal Activity TEACHING/INSTRUCTIONS/REFERRALS Instructions Given To: patient and FOB Instructions Understood: Patient Verbalized Understanding; Support Person Verbalized Understanding Referrals: None Educational Materials- Other: care notes reviewed and signed for Round Ligament pain DISCHARGE INFORMATION Discharged AMA: No Discharge Date/Time: 01/06/2017 14:11 Discharged To: Home Discharge Provider Name: Varun Bennett Accompanied By: FOB Discharge Method: Ambulatory Condition: Stable FOLLOW UP INFORMATION Follow Up With: [facility] Follow Up On: As Scheduled Follow Up Phone Number: [facility] - Comments: Educated to increase po intake, frequent small meals, rest . Return for worsening symptoms GENERAL INSTR-CALL PROVIDER IF: Contractions: Contractions or cramps become more frequent than 8 in one hour or 4 in 20 minutes Pressure: Pressure in your vagina or lower abdomen that may feel like the baby is pushing down Period Like Cramps: Period-like cramps or low dull backache that may come and go Gush of Fluid/Blood: Gush of fluid or blood from your vagina (it is normal to have spotting after vaginal exam or intercourse)
--- NOTE | 2017-01-08 10:45 | L&D Discharge Summary ---
OB Discharge Summary Datetime Report Generated by CPN: 01/08/2017 10:45 DISCHARGE DIAGNOSIS Diagnosis/Symptoms: Round Ligament Syndrome Diagnoses/Symptoms Other: iup 27+6 Gestation: 27.6 Number of Babies in Womb: 1 Parity: 1 DIET/ACTIVITY/RESTRICTIONS Diet: Regular Activity: Normal Activity TEACHING/INSTRUCTIONS/REFERRALS Instructions Given To: patient and FOB Instructions Understood: Patient Verbalized Understanding; Support Person Verbalized Understanding Referrals: None Educational Materials- Other: care notes reviewed and signed for Round Ligament pain DISCHARGE INFORMATION Discharged AMA: No Discharge Date/Time: 01/06/2017 14:11 Discharged To: Home Discharge Provider Name: Varun Bennett Accompanied By: FOB Discharge Method: Ambulatory Condition: Stable FOLLOW UP INFORMATION Follow Up With: [facility] Follow Up On: As Scheduled Follow Up Phone Number: [facility] - Comments: Educated to increase po intake, frequent small meals, rest . Return for worsening symptoms GENERAL INSTR-CALL PROVIDER IF: Contractions: Contractions or cramps become more frequent than 8 in one hour or 4 in 20 minutes Pressure: Pressure in your vagina or lower abdomen that may feel like the baby is pushing down Period Like Cramps: Period-like cramps or low dull backache that may come and go Gush of Fluid/Blood: Gush of fluid or blood from your vagina (it is normal to have spotting after vaginal exam or intercourse)
== END 2017-01-06 14:15 | disposition home or self-care (01) ==
LOC: LC 12:50
PROVIDERS: ATTEND Obstetrics & Gynecology
PROC: 4A1HXCZ Monitoring of Products of Conception, Cardiac Rate, External Approach (ICD-10-PCS; principal; 2017-01-06)
DX: O26.892 Other specified pregnancy related conditions, second trimester (principal); R10.2 Pelvic and perineal pain; Z3A.27 27 weeks gestation of pregnancy
CPT/HCPCS: 80307; 81001

== ENCOUNTER 2017-02-17 16:39 | Outpatient (CLI) | payer MEDICAID ==
--- NOTE | 2017-02-17 17:29 | Non Stress Test Report ---
Non Stress Test Datetime Report Generated by CPN: 02/17/2017 17:29 DEMOGRAPHIC EGA NST: 33.6 INDICATION Indication for Study: Substance Abuse; Ordered by Provider; Other MONITORING Monitor Explained: Monitor Explained; Test Explained; Patient Verbalized Understanding Time on Monitor: 02/17/2017 17:03 Time off Monitor: 02/17/2017 17:27 NST Duration: 24 NST INTERVENTIONS NST Interventions: PO Hydration; Reposition Patient Physician Notified NST: Dr. Alex BABY A: [id number] BABY A Movement : Present Contraction Frequency : 0 FHR Baseline : 145 Accelerations : 15X15 Decelerations : None Variability : Moderate 6-25bpm NST Review: Meets Criteria for Reactive NST NST Review and Verified By : Matt Gonzales RN NST Results: Reactive NST REPORT Report Trigger: Send Report
== END 2017-02-17 17:32 | disposition home or self-care (01) ==
LOC: LC 16:39
PROVIDERS: ATTEND Obstetrics & Gynecology
PROC: 4A1HXCZ Monitoring of Products of Conception, Cardiac Rate, External Approach (ICD-10-PCS; principal; 2017-02-17)
DX: F19.10 Other psychoactive substance abuse, uncomplicated (principal); Z3A.33 33 weeks gestation of pregnancy
CPT/HCPCS: 59025

== ENCOUNTER 2017-03-06 11:23 | Outpatient (CLI) | payer MEDICAID ==
[2017-03-06 12:32] LABS: APPEARANCE,URINE CLEAR; BILIRUBIN,URINE NEGATIVE (NEGATIVE); GLUCOSE, URINE NEGATIVE (NEGATIVE); KETONES,URINE NEGATIVE (NEGATIVE); LEUKOCYTE ESTERASE,URINE NEGATIVE (NEGATIVE); NITRITE,URINE NEGATIVE (NEGATIVE); PROTEIN,URINE NEGATIVE (NEGATIVE); URINE SPECIFIC GRAVITY 1.002; UROBILINOGEN,URINE NEGATIVE mg/dL (<2.0)
[2017-03-06 12:33] LABS: AMNISURE (ROM) NEGATIVE (NEGATIVE)
[2017-03-06 12:52] LABS: URINE BARBITURATES SCREEN NEGATIVE; URINE METHADONE SCREEN NEGATIVE; URINE OPIATES LOW NEGATIVE; URINE PHENCYCLIDINE SCREEN NEGATIVE
--- NOTE | 2017-03-06 13:03 | Non Stress Test Report ---
Non Stress Test Datetime Report Generated by CPN: 03/06/2017 13:02 DEMOGRAPHIC EGA NST: 36.2 INDICATION Indication for Study (NST) Other: LC MONITORING Monitor Explained: Monitor Explained; Test Explained; Patient Verbalized Understanding Time on Monitor: 03/06/2017 11:44 Time off Monitor: 03/06/2017 12:55 NST Duration: 71 NST INTERVENTIONS NST Interventions: None Physician Notified NST: A. Emmel CNM BABY A: [id number] BABY A Movement : Present Contraction Frequency : x1 FHR Baseline : 130 Accelerations : 15X15 Decelerations : Variable Variability : Moderate 6-25bpm NST Review: Meets Criteria for Reactive NST NST Review and Verified By : CITLALY DINH, RN NST Results: Reactive NST COMMENTS NST Comments: provider reviewed strip NST REPORT Report Trigger: Send Report
== END 2017-03-06 13:07 | disposition home or self-care (01) ==
LOC: LC 11:23
PROVIDERS: ATTEND Obstetrics & Gynecology
PROC: 4A1HXCZ Monitoring of Products of Conception, Cardiac Rate, External Approach (ICD-10-PCS; principal; 2017-03-06)
DX: O47.03 False labor before 37 completed weeks of gestation, third trimester (principal); O76 Abnormality in fetal heart rate and rhythm complicating labor and delivery; Z3A.36 36 weeks gestation of pregnancy
CPT/HCPCS: 59025; 84112; 87210; 81001; 80307; Q0114

== ENCOUNTER 2017-03-20 12:50 | Outpatient (CLI) | payer MEDICAID | END 2017-03-20 13:38 | disposition home or self-care (01) | LOC: LC 12:50 | PROVIDERS: ATTEND Obstetrics & Gynecology | PROC: 4A1HXCZ Monitoring of Products of Conception, Cardiac Rate, External Approach (ICD-10-PCS; principal; 2017-03-20) | DX: Z34.93 Encounter for supervision of normal pregnancy, unspecified, third trimester (principal); Z36 Encounter for antenatal screening of mother; Z3A.38 38 weeks gestation of pregnancy | CPT/HCPCS: 59025 ==

== ENCOUNTER 2017-03-23 19:14 | Outpatient (CLI) | payer MEDICAID ==
--- NOTE | 2017-03-23 19:30 | Non Stress Test Report ---
Non Stress Test Datetime Report Generated by CPN: 03/23/2017 19:30 DEMOGRAPHIC EGA NST: 38.2 INDICATION Indication for Study: Ordered by Provider MONITORING Monitor Explained: Monitor Explained; Test Explained; Patient Verbalized Understanding Time on Monitor: 03/20/2017 13:01 Time off Monitor: 03/20/2017 13:32 NST Duration: 31 NST INTERVENTIONS NST Interventions: PO Hydration BABY A: [id number] BABY A Movement : Present Contraction Frequency : irregular FHR Baseline : 125 Accelerations : 15X15 Decelerations : None Variability : Moderate 6-25bpm NST Review: Meets Criteria for Reactive NST NST Review and Verified By : K Lex RN NST Results: Reactive NST REPORT Report Trigger: Send Report
--- NOTE | 2017-03-23 20:24 | Non Stress Test Report ---
Non Stress Test Datetime Report Generated by CPN: 03/23/2017 20:24 EGA NST: 38.5 Indication for Study: Ordered by Provider Monitor Explained: Monitor Explained; Test Explained; Patient Verbalized Understanding Time on Monitor: 03/23/2017 19:32 Time off Monitor: 03/23/2017 20:16 NST Duration: 44 NST Interventions: PO Hydration Movement : Present Contraction Frequency : irregular FHR Baseline : 140 Accelerations : 15X15 Decelerations : None Variability : Moderate 6-25bpm NST Review: Meets Criteria for Reactive NST NST Review and Verified By : Melanie Thapa RN NST Results: Reactive Report Trigger: Send Report
== END 2017-03-23 20:24 | disposition home or self-care (01) ==
LOC: LC 19:14
PROVIDERS: ATTEND Obstetrics & Gynecology
PROC: 4A1HXCZ Monitoring of Products of Conception, Cardiac Rate, External Approach (ICD-10-PCS; principal; 2017-03-23)
DX: O47.1 False labor at or after 37 completed weeks of gestation (principal); Z3A.38 38 weeks gestation of pregnancy
CPT/HCPCS: 59025

== ENCOUNTER 2019-03-18 15:06 | Emergency (ER) | payer MEDICAID ==
[2019-03-18] MEDS ORDERED: ONDANSETRON 4 MG TAB.RAPDIS PO ONE (16:05)
--- NOTE | 2019-03-18 16:09 | ER Document Report ---
ED General - General Chief Complaint: Sore Throat Stated Complaint: VOMITING Time Seen by Provider: 03/18/19 15:47 Primary Care Provider: MANUEL RAPHAEL MD [Primary Care Provider] - Follow up as needed Mode of Arrival: Ambulatory Information source: Patient Notes: Patient presents emergency department with complaints that she has been sick since March 11. She reports she went to start medical and her strep test came back negative. Patient reports she received a prescription for antibiotics, Augmentin and steroids but she is not taking them because she cannot swallow. She reports that she had some soup earlier this week and vomited it. She reports she is been vomiting on a daily basis. Is not sure if she is . Denies fever diarrhea. Eyes pain with void. Denies urinary frequency. Patient is talking in a clear voice good airway. TRAVEL OUTSIDE OF THE [place] IN LAST 30 DAYS: No - HPI Onset: Other Onset/Duration: Persistent Severity: Severe Pain Level: 4 Associated symptoms: Nausea, Vomiting Exacerbated by: Denies Relieved by: Denies Similar symptoms previously: Yes Recently seen / treated by doctor: Yes - Related Data Allergies/Adverse Reactions: No Known Drug Allergies Allergy (Verified 03/18/19 15:15) bee stings Allergy (Uncoded 03/18/19 15:15) Past Medical History - General Information source: Patient - Social History Smoking Status: Unknown if Ever Smoked Frequency of alcohol use: None Drug Abuse: None, Other - history of substance abuse Lives with: Family Family History: Reviewed & Not Pertinent Patient has suicidal ideation: No Patient has homicidal ideation: No Neurological Medical History: Reports: Hx Migraine Renal/ Medical History: Denies: Hx Peritoneal Dialysis Past Surgical History: Reports: Hx Orthopedic Surgery - ingrown toenails, Hx Tonsillectomy - Immunizations Hx Diphtheria, Pertussis, Tetanus Vaccination: Yes Review of Systems - Review of Systems Notes: Review HPI for review of systems., All other systems negative Physical Exam - Vital signs Vitals: Temp Pulse Resp BP Pulse Ox 98.6 F 103 H 16 122/78 98 03/18/19 15:26 03/18/19 15:26 03/18/19 15:26 03/18/19 15:26 03/18/19 15:26 - Notes Notes: PHYSICAL EXAMINATION: GENERAL: Well-appearing and in no acute distress, smiling during assessment and interview HEAD: Atraumatic, normocephalic. EYES: Pupils equal round and reactive to light, extraocular movements intact, sclera anicteric, conjunctiva are normal. ENT: nares patent, oropharynx with eyrthema and exudate. Moist mucous membranes. Good airway opens mouth wide no trismus no drooling no peritoneal abscess noted NECK: Normal range of motion, supple without lymphadenopathy LUNGS: CTAB and equal. No wheezes rales or rhonchi. HEART: Regular rate and rhythm without murmurs ABDOMEN: Soft, no tenderness. No guarding, no rebound EXTREMITIES: Normal range of motion, no pitting edema. NEUROLOGICAL: Cranial nerves grossly intact. PSYCH: Normal mood, normal affect. SKIN: Warm, Dry, normal turgor, no rashes or lesions noted Course - Re-evaluation Re-evalutation: 03/18/19 17:45 Labs completed liver enzymes slightly elevated. leukocytes noted in urine patient denies symptoms. Negative strep negative mono 03/18/19 18:08 Drank p.o. fluids and ate a popsicle. Reports no vomiting. Patient is speaking in a clear voice no distress good airway. Patient was instructed on all results. Given a copy of her labs. Instructed on the elevated liver enzymes. Instructed follow-up withmedical for review and re-evaluation. She verbalized understanding to all instructions. Dictation of this chart was performed using voice recognition software; therefore, there may be some unintended grammatical errors. - Vital Signs Vital signs: Temp Pulse Resp BP Pulse Ox 98.3 F 90 18 116/77 97 03/18/19 17:59 03/18/19 17:59 03/18/19 17:59 03/18/19 17:59 03/18/19 17:59 - Laboratory Result Diagrams: 03/18/19 16:15 03/18/19 16:15 Laboratory results interpreted by me: 03/18/19 03/18/19 16:15 16:15 Chloride 97 L Carbon Dioxide 32 H Direct Bilirubin 0.5 H AST 99 H ALT 123 H Total Protein 8.3 H Urine Protein 30 H Urine Blood SMALL H Urine Urobilinogen 4.0 H Ur Leukocyte Esterase MODERATE H Discharge - Discharge Clinical Impression: Sore throat Nausea & vomiting Qualifiers: Vomiting type: unspecified Vomiting Intractability: non-intractable Qualified Code(s): R11.2 - Nausea with vomiting, unspecified Condition: Stable Disposition: HOME, SELF-CARE Instructions: Antinausea Medication ([facility]), Sore Throat ([facility]), Steroid Medication Injection Additional Instructions: *You have been evaluated for a sore throat, nausea and vomiting Your strep test was negative today. A throat culture has been ordered. Should you need a different antibiotic you will be contacted. *Take antibiotics as prescribed by [facility]. You received an injection of steroid medication today so you do not need to take the prednisone. You have been given a copy of your labs to follow-up with*medical. Your liver enzymes are elevated in need to be rechecked. *Warm salt water gargles and throat lozenges for comfort *Change toothbrush after two days of antibiotics *Do not let anyone drink/eat after you *Good hand washing *Follow-up with your primary care provider, start medical within 5 days. *Return to ED for worsening condition change, needs, unable to swallow, vomiting, concerns Referrals: MANUEL RAPHAEL MD [Primary Care Provider] - Follow up as needed
[2019-03-18 16:52] LABS: ABSOLUTE EOSINOPHILS # (AUTO) 0.1 10^3/uL (0.0-0.6); ABSOLUTE MONOCYTES (AUTO) 0.6 10^3/uL (0.1-1.4); ABSOLUTE NEUT (AUTO) 4.6 10^3/uL (1.7-8.2); BASOPHILS % (AUTO) 0.5 % (0-2); EOSINOPHILS % (AUTO) 1.2 % (0-6); HEMATOCRIT 42.8 % (36.0-47.0); HEMOGLOBIN 14.7 g/dL (12.0-15.5); LYMPHOCYTES % (AUTO) 27.2 % (13-45); MEAN CORPUSCULAR HEMOGLOBIN 29.9 pg (27.0-33.4); MEAN CORPUSCULAR HGB CONC 34.3 g/dL (32.0-36.0); MEAN CORPUSCULAR VOLUME 87 fl (80-97); MONOCYTES % (AUTO) 8.6 % (3-13); PLATELET COUNT 260 10^3/uL (150-450); RED BLOOD COUNT 4.91 10^6/uL (3.72-5.28); RED CELL DISTRIBUTION WIDTH 12.8 % (11.5-14.0); SEGMENTED NEUTROPHILS % (AUTO) 62.5 % (42-78); TOTAL CELLS COUNTED % (AUTO) 100 %; WHITE BLOOD COUNT 7.4 10^3/uL (4.0-10.5)
[2019-03-18 16:58] LABS: ALANINE AMINOTRANSFERASE 123 U/L (9-52); ALBUMIN 4.8 g/dL (3.5-5.0); ALKALINE PHOSPHATASE 124 U/L (38-126); ANION GAP 13 (5-19); ASPARTATE AMINO TRANSFERASE 99 U/L (14-36); BILIRUBIN,DIRECT 0.5 mg/dL (0.0-0.4); BILIRUBIN,TOTAL 0.7 mg/dL (0.2-1.3); BLOOD UREA NITROGEN 7 mg/dL (7-20); CALCIUM 9.8 mg/dL (8.4-10.2); CARBON DIOXIDE 32 mmol/L (22-30); CHLORIDE 97 mmol/L (98-107); GLUCOSE 94 mg/dL (75-110); POTASSIUM 3.7 mmol/L (3.6-5.0); SODIUM 141.6 mmol/L (137-145); TOTAL PROTEIN 8.3 g/dL (6.3-8.2)
[2019-03-18 17:10] LABS: APPEARANCE,URINE SLIGHTLY-CLOUDY; BILIRUBIN,URINE NEGATIVE (NEGATIVE); GLUCOSE, URINE NEGATIVE (NEGATIVE); KETONES,URINE NEGATIVE (NEGATIVE); LEUKOCYTE ESTERASE,URINE MODERATE (NEGATIVE); NITRITE,URINE NEGATIVE (NEGATIVE); PROTEIN,URINE 30 mg/dL (NEGATIVE); URINE SPECIFIC GRAVITY 1.017
[2019-03-18 17:11] LABS: COLOR,URINE DARK YELLOW
[2019-03-18] MEDS ORDERED: DEXAMETHASONE SOD PHOS INJ 10 MG/1 ML VIAL IM ONE (17:38)
[2019-03-18 18:00] VITALS: BP 116/77
== END 2019-03-18 18:17 | disposition home or self-care (01) ==
LOC: ER 15:06
DX: J02.9 Acute pharyngitis, unspecified (principal); R11.2 Nausea with vomiting, unspecified
CPT/HCPCS: 99283; 96372; 36415; 87070; 87880; 85025; 81025; 86308; 80053; 81001; S0119; J1100

== ENCOUNTER → 2019-04-11 | Outpatient (CLI) | payer MEDICAID ==
--- NOTE | 2019-04-11 15:42 | RADIOLOGY REPORT (SQ) ---
EXAM DESCRIPTION: NM HIDA SCAN WITH CCK COMPLETED DATE/TIME: 04/11/2019 3:27 pm REASON FOR STUDY: BILIOUS VOMITING W/NAUSEA (R11.14) R11.14 BILIOUS VOMITING COMPARISON: None. RADIONUCLIDE AND DOSE: DOSAGE RADIONUCLIDE: 5 millicuries Tc99m Mebrofenin. DOSAGE CCK: 1.6 micrograms. DOSAGE MORPHINE: Not required. The route of agent administration: Intravenous TECHNIQUE: Serial imaging right upper quadrant up to 60 minutes following injection of radionuclide. CCK injected after gallbladder visualized. LIMITATIONS: None. FINDINGS: LIVER: Normal visualization without areas of photopenia. INTRAHEPATIC BILE DUCTS: Normal size and no delay in visualization. COMMON BILE DUCT: Normal without dilatation. GALLBLADDER: Normal visualization. Calculated ejection fraction of 19%. Normal range is greater th an 35%. PHYSICAL RESPONSE: Patients presenting complaint was not reproduced. OTHER: No other significant finding. IMPRESSION: Delayed gallbladder emptying with an ejection fraction of 19% where 35% or greater is co nsidered normal. TECHNICAL DOCUMENTATION: JOB ID: [id number] [employer]- All Rights Reserved Reading location - IP/workstation name: [email or web address]
== END ==
LOC: RAD 12:50
PROVIDERS: ATTEND Internal Medicine Gastroenterology
DX: R11.14 Bilious vomiting (principal)
CPT/HCPCS: 78227; J2805; A9537; Q9969

== ENCOUNTER → 2019-09-09 | Outpatient (CLI) | payer MEDICAID ==
--- NOTE | 2019-09-10 10:32 | RADIOLOGY REPORT (SQ) ---
EXAM DESCRIPTION: MRI LUMBAR SPINE WITHOUT COMPLETED DATE/TIME: 09/09/2019 9:27 pm REASON FOR STUDY: (M54.16)RADICULOPATHY, LUMBAR REGION M54.16 RADICULOPATHY, LUMBAR REGION COMPARISON: None. TECHNIQUE: Sagittal and Axial imaging includes T1, T2, STIR and gradient echo sequences. Coronal T2/ HASTE imaging. LIMITATIONS: None. FINDINGS: VISUALIZED UPPER ABDOMEN: Limited evaluation. No acute or suspicious findings suggested. SEGMENTATION: No transitional anatomy. The lowest well-developed disc space is labeled L5-S1. ALIGNMENT: Anatomic. VERTEBRAE: Intact. BONE MARROW: Normal. No marrow replacement or reactive changes. DISC SIGNAL: Normal. No significant abnormal signal or loss of height. POSTERIOR ELEMENTS: There is facet arthropathy at L4-L5 and L5-S1 bilaterally. HARDWARE: None in the spine. CORD AND CONUS: Normal in size and signal intensity. Conus at the appropriate level. SOFT TISSUES: No aortic aneurysm seen. No bulky retroperitoneal adenopathy or mass. No paraspinal mas s or fluid. L1-L2: No significant spinal stenosis or exit foraminal stenosis. L2-L3: No significant spinal stenosis or exit foraminal stenosis. L3-L4: No significant spinal stenosis or exit foraminal stenosis. L4-L5: No significant spinal stenosis or exit foraminal stenosis. L5-S1: No significant spinal stenosis or exit foraminal stenosis. LOWER THORACIC: Incompletely imaged. No stenosis seen. SACRUM: Visualized upper sacrum intact. OTHER: No other significant findings. IMPRESSION: Mild facet arthropathy at L4-L5 and L5-S1 bilaterally. No disc herniation, spinal steno sis or nerve root impingement. TECHNICAL DOCUMENTATION: JOB ID: [id number]- All Rights Reserved Reading location - IP/workstation name: [email or web address]
== END ==
LOC: RAD 19:40
PROVIDERS: ATTEND Physician Assistant
DX: M54.16 Radiculopathy, lumbar region (principal)
CPT/HCPCS: 72148